=== PATIENT | female | born 1965 | race Caucasian/White ===

== ENCOUNTER 2023-11-04 12:49 | Outpatient (OUT) | payer BC, SELFPAY ==
--- NOTE | 2023-11-04 12:58 | MM_ITS ---
Patient Name: INNA SANTIAGO MR#: [id number] : 1965 Exam Date: 11/04/2023 Ordering Doctor: DR Nevaeh Chappell M.D. RADIOLOGY REPORT PROCEDURE: MM TOMOSYNTHESIS SCREENING BI COMPARISON: None. INDICATIONS: Screening for malignant neoplasm Calculator Name NCI Breast Cancer Risk Assessment Tool 5 Year Breast Cancer Risk Not Reported. Lifetime Breast Cancer Risk Not Reported. Personal Breast Cancer No Personal Ovarian Cancer No Treatments None Family Cancers None LOCATION: [facility] BREAST COMPOSITION: The breasts are heterogeneously dense,which may obscure small masses. FINDINGS: DIAGNOSTIC CATEGORY 2--BENIGN FINDING: RIGHT BREAST: No significant suspicious finding. Scattered benign-appearing calcifications are present. LEFT BREAST: No significant suspicious finding. Scattered benign-appearing calcifications are present. RECOMMENDATIONS: ROUTINE MAMMOGRAM AND CLINICAL EVALUATION IN 12 MONTHS. PLEASE NOTE: A NORMAL MAMMOGRAM DOES NOT EXCLUDE THE POSSIBILITY OF BREAST CANCER. A CLINICALLY SUSPICIOUS PALPABLE LUMP SHOULD BE BIOPSIED. Dictated by: Herbert Rogers M.D. on 11/04/2023 at 16:07 Approved by: Herbert Rogers M.D. on 11/04/2023 at 16:09
== END 2023-11-04 12:50 | disposition home or self-care (01) ==
LOC: MAMMO 12:52
PROVIDERS: PCP Family Medicine; Visit Provider Family Medicine
DX: Z12.31 Encounter for screening mammogram for malignant neoplasm of breast (principal)
CPT/HCPCS: 77063; 77067

== ENCOUNTER 2023-11-22 13:08 | Emergency (ER) | payer BC, SELFPAY ==
[2023-11-22] VITALS (8 sets, daily range): BP systolic 177–200; BP diastolic 88–93; PULSE 84–93; TEMP 36.9; O2SAT 98–99; BMI 26.5
--- NOTE | 2023-11-22 13:54 | XR_ITS ---
The [address] [address] Patient Name: INNA SANTIAGO MRN: [facility]:[id number] date: 1965 Sex: F Assigned Patient Location: ED.MAIN Current Patient Location: ER Accession/Order Number: [id number] Exam Date: 11/22/2023 14:30 Report Date: 11/22/2023 14:59 At the request of: ASHWINI BROWN Procedure: XR chest 1V EXAMINATION: XR chest 1V HISTORY: HTN COMPARISON: No relevant comparison available. TECHNIQUE: AP portable FINDINGS: LUNGS: No significant pulmonary parenchymal abnormalities. VASCULATURE: No increased pulmonary vasculature. PLEURA: No pneumothorax, effusion, or pleural thickening. CARDIAC: No cardiomegaly or cardiac silhouette abnormality. MEDIASTINUM: No visible mass or adenopathy. BONES: Mild degenerative disc disease and spondylosis without visible acute abnormalities. OTHER: Negative. XR/XR chest 1V IMPRESSION: No acute cardiopulmonary process Electronically authenticated by: CHUCHO AQUINO Date: 11/22/2023 14:59
--- NOTE | 2023-11-22 13:54 | CT_ITS ---
The [place] [id number] Patient Name: INNA SANTIAGO MRN: [facility]:[id number] date: 1965 Sex: F Assigned Patient Location: ED.MAIN Current Patient Location: Accession/Order Number: [id number] Exam Date: 11/22/2023 14:30 Report Date: 11/22/2023 15:00 At the request of: ASHWINI BROWN Procedure: CT head/brain wo con Study: CT head/brain wo con HISTORY: Dizziness, HTN.0 Technique: CT images of the head were acquired without intravenous contrast. Dose reduction technique used: Automatic exposure control and/or adjustment of the mA and/or kV according to patient size and/or use of degenerative reconstruction technique. Comparisons: None. Findings: BRAIN PARENCHYMA: No acute hemorrhage. No mass effect or herniation. No territorial loss of whyte-white matter differentiation. Scattered deep white matter hypodensities are nonspecific, favored to represent chronic small vessel ischemic change. The sellar contents appear normal. VENTRICLE/EXTRA-AXIAL SPACES: No hydrocephalus or extra-axial fluid collections. EXTRACRANIAL STRUCTURES: No destructive osseous lesion. Normal soft tissues. Mastoids are clear. ORBITS: Normal. PARANASAL SINUSES: Scattered ethmoid air cell mucosal thickening is nonobstructive. CT/CT head/brain wo con IMPRESSION: 1. No acute intracranial hemorrhage. 2. Patchy deep white matter hypodensities are nonspecific. Findings may represent chronic small vessel ischemic change. Consider further evaluation with MRI as clinical suspicion warrants. Of note, CT is relatively insensitive for acute infarct. Electronically authenticated by: LEO MONTANA Date: 11/22/2023 15:00
--- NOTE | 2023-11-22 13:59 | ED_ITS ---
HPI - Dizziness General Chief Complaint: Dizziness Stated Complaint: DIZZINESS/ HIGH BLODD PRESSURE Time Seen by Provider: 11/22/23 13:49 Source: patient Mode of arrival: walk-in Limitations: no limitations History of Present Illness HPI Narrative: 58 year old female presents to the ED for dizziness, nausea, HTN. Sx have been intermittent for the past 1-2 days. Reports a spinning sensation with movements. Reports increased thirst today. Denies fever, chills, SHELLEY, vision changes. Denies CP, SOB, cough, congestion. Denies emesis, diarrhea, urinary sx, abd pain. She has not taken her BP or DM medication for at least several days. She last checked her BS 2-3 weeks ago; it was around 140. Denies pain currently. Reports feeling anxious at this time. Related Data Previous Rx's ?Medication ?Instructions ?Recorded meclizine 12.5 mg tablet 12.5 mg PO BID PRN dizziness #10 11/22/23 tabs Allergies Allergy/AdvReac Type Severity Reaction Status Date / Time Penicillins Allergy Unconscious Verified 11/22/23 13:49 Review of Systems ROS Eyes Denies: change in vision Ears, nose, mouth, and throat Reports: dry mouth and vertigo; Denies: throat pain, neck pain, throat swelling, ear pain, ear discharge, nasal discharge or nasal congestion Cardiovascular Denies: chest pain, palpitations or edema Respiratory Denies: shortness of breath or cough Gastrointestinal Reports: nausea; Denies: abdominal pain, vomiting or diarrhea Genitourinary Denies: painful urination, urinary frequency or urinary urgency Musculoskeletal Denies: back pain or neck pain Integumentary/Breast Denies: rash Neurological Reports: dizziness and vertigo; Denies: headache, numbness in extremities or weakness in extremities Endocrine Reports: excessive thirst; Denies: fatigue [facility] Medical History (Updated 11/22/23 @ 15:30 by Trish Man) Diabetes ?E11.9 - Type 2 diabetes mellitus without complications (ICD-10) Hypertension ?I10 - Essential (primary) hypertension (ICD-10) Social History Little interest or pleasure in doing things: not at all Feeling down, depressed, or hopeless: not at all Exam Constitutional Vital Signs, click to edit/add: Last Vital Signs Temp 98.4 F 11/22/23 13:41 Pulse 93 H 11/22/23 15:19 Resp 20 11/22/23 15:19 BP 179/90 H 11/22/23 15:19 Pulse Ox 98 11/22/23 15:19 O2 Del Method Room Air 11/22/23 15:00 HENMT Common normals: normocephalic Face and sinus: normal facial exam Mouth: oral and palatal mucosa normal, lip normal and tongue normal Throat: posterior oropharynx normal Eye Common normals: PERRL, EOMs intact bilaterally, conjunctivae normal and no scleral icterus Neck & C-Spine Common normals: full ROM, no lymphadenopathy and supple Chest Chest: symmetrical chest wall rise Respiratory Common normals: normal respiratory effort Effort & inspection: symmetric chest movement Cardio Common normals: regular rate and regular rhythm Neuro Common normals: oriented x3, CN's II-XII intact bilaterally and moves all extremities Sensorium/orientation: awake and alert Speech: speech normal Gait (neuro): normal gait Course Vital Signs Vital signs: Vital Signs Temperature 98.4 F 11/22/23 13:41 Pulse Rate 85 11/22/23 13:41 Respiratory Rate 16 11/22/23 13:41 Blood Pressure 200/90 H 11/22/23 13:41 Pulse Oximetry 99 11/22/23 13:41 Oxygen Delivery Method Room Air 11/22/23 13:41 Temperature 98.4 F 11/22/23 13:41 Pulse Rate 93 H 11/22/23 15:19 Respiratory Rate 20 11/22/23 15:19 Blood Pressure 179/90 H 11/22/23 15:19 Pulse Oximetry 98 11/22/23 15:19 Oxygen Delivery Method Room Air 11/22/23 15:00 MDM - Dizziness MDM Narrative Medical decision making narrative: CBC and BMP were unremarkable. CT head and chest x-ray were negative for acute findings. Findings were discussed. A prescription was provided for Antivert. She was encouraged to take her home medications as directed. Follow up with pcp for a recheck, further evaluation and treatment. Return precautions were discussed. Medical Records Attestation: I reviewed the patient's medical records. Lab Data Attestation: I reviewed the patient's lab results. Labs: Lab Results 11/22/23 Range/Units 13:56 WBC 6.6 (4.0-11.0) 10^3/uL RBC 4.91 (4.20-5.40) 10^6/uL Hgb 14.0 (12.0-16.0) g/dL Hct 40.4 (36.0-48.0) % MCV 82.3 (81.0-99.0) fL MCH 28.5 (26.7-34.0) pg MCHC 34.7 (29.9-35.2) g/dL RDW 11.9 (11.0-15.0) % Plt Count 313 (150-450) 10^3/uL MPV 8.7 L (9.5-13.5) fL Neut % (Auto) 61.4 (43.0-75.0) % Lymph % (Auto) 32.6 (20.5-60.0) % Milam % (Auto) 4.1 (1.7-12.0) % Eos % (Auto) 1.1 (0.9-7.0) % Baso % (Auto) 0.5 (0.2-2.0) % Neut # (Auto) 4.0 (1.4-6.5) 10^3/uL Lymph # (Auto) 2.1 (1.2-3.8) 10^3/uL Milam # (Auto) 0.3 (0.3-0.8) 10^3/uL Eos # (Auto) 0.1 (0.0-0.7) 10^3/uL Baso # (Auto) 0.0 (0.0-0.1) 10^3/uL Abs Immat Gran (auto) 0.02 (0.00-0.03) 10^3/uL Imm/Tot Granulo (auto) 0.3 (0.0-0.5) % Sodium 133 L (136-145) mmol/L Potassium 3.4 L (3.5-5.1) mmol/L Chloride 97 L (98-107) mmol/L Carbon Dioxide 25.7 (21.0-32.0) mmol/L Anion Gap 13.7 BUN 13.0 (7.0-18.0) mg/dL Creatinine 0.85 (0.55-1.02) mg/dL Est GFR ( Amer) >60 (>=60) Est GFR (Non-Af Amer) >60 (>=60) BUN/Creatinine Ratio 15.3 Glucose 276 H (74-106) mg/dL Calcium 9.5 (8.5-10.1) mg/dL Imaging Data CT scan - head: Attestation: I have reviewed the pertinent imaging results. Radiologist's impression: ITS Impressions Chest X-Ray 11/22/23 13:54 IMPRESSION: No acute cardiopulmonary process Electronically authenticated by: CHUCHO AQUINO Date: 11/22/2023 14:[address] 11/22/23 13:54 IMPRESSION: 1. No acute intracranial hemorrhage. 2. Patchy deep white matter hypodensities are nonspecific. Findings may represent chronic small vessel ischemic change. Consider further evaluation with MRI as clinical suspicion warrants. Of note, CT is relatively insensitive for acute infarct. Electronically authenticated by: LEO MONTANA Date: 11/22/2023 15:00 ECG Data Attestation: ?I have reviewed the pertinent ECG results. (EKG was reviewed by the attending physician. It showed sinus rhythm at a rate of 84. No acute ST segment changes.) Interpretation: Measurements Intervals Rickman Rate: 84 P: 73 NH: 142 QRS: 46 QRSD: 78 T: 46 QT: 370 QTc: 411 Interpretive Statements 1100 Sinus rhythm 3433 Septal myocardial infarction, probably old 9150 abnormal ECG No previous ECG available for comparison Discharge Plan Discharge Chief Complaint: Dizziness Clinical Impression: Dizziness, Hypertension Patient Disposition: Home, Self-Care Time of Disposition Decision: 15:29 Condition: Good Mode of Transportation: Private Vehicle Prescriptions / Home Meds: New meclizine 12.5 mg tablet 12.5 mg PO BID PRN (Reason: dizziness) Qty: 10 0RF Print Language: Sami Instructions: Vertigo (ED), Hypertension (ED), Dizziness (ED), Diabetic Hyperglycemia (ED) Additional Instructions: Return to the ER for new or worsening symptoms. Referrals: Nevaeh Chappell MD [Primary Care Provider] - 1 week Discharge Date/Time: 11/22/23 15:54
[2023-11-22] MEDS: ONDANSETRON PF 4 MG/2 ML VIAL IV (14:02)
--- OUTSIDE RECORDS SUMMARY | 2023-11-22 14:08 | XMS_ITS | CCD ---
Author Organization [facility] Care Team Providers Care Home Day Care Provider Name Role Phone DR NEVAEH CHAPPELL Admitting Unavailable MANDO, DR NEVAEH Martinez Primary Care Unavailable CHAPPELL, DR NEVAEH Martinez Consulting Unavailable MANDO, DR NEVAEH Martinez Attending Unavailable MANDO, DR NEVAEH Martinez Primary Care Unavailable NHAN OVERTON Admitting Unavailable NHAN OVERTON Consulting Unavailable NHAN OVERTON Attending Unavailable MANDO, DR NEVAEH Martinez Primary Care Unavailable WEST, DR CHUCHO Monsalve Consulting Unavailable CHAPPELL, DR NEVAEH Martinez Attending Unavailable CHAPPELL, DR NEVAEH Martinez Admitting Unavailable CHAPPELL, DR NEVAEH Martinez Consulting Unavailable CHAPPELL, DR NEVAEH Martinez Admitting Unavailable CHAPPELL, DR NEVAEH Martinez Primary Care Unavailable CHAPPELL, DR NEVAEH Martinez Consulting Unavailable CHAPPELL, DR NEVAEH Martinez Attending Unavailable Nevaeh Chappell Unavailable Matthias Matta Unavailable MD Nevaeh Chappell Attending Provider Nevaeh Chappell Attending Unavailable Nevaeh Chappell Admitting Unavailable NON STAFF Primary Care Unavailable Allergies Allergy Classification Reported Allergen(s) Allergy Type Date of Onset Reaction(s) Facility (1 source) Penicillins Drug allergy (disorder) 03-21-19 15 The Repository (4 sources) Angiotensin-convert ing enzyme inhibitor agent Drug allergy 05-02-19 16 Unknown [facility] Other (5 sources) Penicillin G Benzathine; Translations: [penicillin G benzathine] Drug allergy 11-01-19 24 passed out [facility] Repository (4 sources) Penicillin V Drug Allergy 05-02-19 16 Unknown [employer] Other (4 sources) Allergies Reconciled Propensity to adverse reactions Unknown [employer] Other (4 sources) Substance with penicillin structure and antibacterial mechanism of action (substance) Drug allergy 05-03-19 18 Unknown [employer] Other (4 sources) patient allergy list reviewed by nurse or physicia Propensity to adverse reactions 08-16-19 19 Comment:Done [employer] Other (4 sources) DEAN inhibitor use, contraindication Propensity to adverse reactions 05-02-19 16 Comment:advers e rxn/side effects [employer] Other Medications Current Medications Medication Drug Class(es) Dates Sig (Normalized) Sig (Original) 0.25 MG, 0.5 MG Dose 3 ML semaglutide 0.68 MG/ML Pen Injector [Ozempic] (4 sources) Start: 07-30-2022 inject 0.5 mg by subcutaneous injection every week Ozempic (0.25 or 0.5 MG/DOSE) 2 MG/3ML 0.5mg Subcutaneous weekly for 90 days July, Active aspirin 81 mg chewable tablet (6 sources) Platelet Aggregation Inhibitor, Nonsteroidal Anti-inflammatory Drug Start: 10-26-2023 take 81 mg by mouth once daily Aspirin Active 81 MG PO Daily October 26, 2023 12:00am Baby Aspirin Act crow azithromycin 250 mg oral tablet (4 sources) Macrolide Antimicrobial Start: 07-30-2022 Azithromycin 250 MG as directed Orally 2 tabs po today, then 1 tab daily x 4 more days for 5 July, Active losartan potassium 50 mg oral tablet (2 sources) Angiotensin 2 Receptor Guillermo Start: 10-26-2023 take 50 mg by mouth once daily Losartan Active 50 MG PO Daily October 26, 2023 12:00am Losartan Potassium-HCTZ (4 sources) Losartan Potassium-HCTZ Active metFORMIN hydrochloride 500 mg oral tablet (3 sources) Biguanide Start: 09-10-2023 take 1500 mg by mouth once daily Metformin Active 1500 MG PO Daily September 10, 2023 12:00am take 3 tablets by [facility] every twenty-four hours metFORMIN HCl ER 500 MG 3 tablets Orally daily for 30 days Active Ozempic (0.25 or 0.5 MG/DOSE) 2 MG/1.5ML (1 source) Ozempic (0.25 or 0.5 MG/DOSE) 2 MG/1.5ML INJECT 0.5MG MILLIGRAM UNDER SKIN ONCE A WEEK for 84 Active Semaglutide (2 sources) Start: 10-26-2023 inject 0.5 mg by subcutaneous injection every week Semaglutide (Ozempic) 0.25 mg or 0.5 mg (2 mg/3 mL) pen injector Active MG SUBCUT October 26, 2023 12:00am [employer]Text[employer].5mg Subcutaneous weekly; Note: Source Status: Taking; Refills: 2; Provider: Mando Martinez Completed/Discontinued Medications Medication Drug Class(es) Dates Sig (Normalized) Sig (Original) 0.25 mg, 0.5 mg dose 1.5 ml semaglutide 1.34 mg/ml pen injector (5 sources) Start: 10-26-2023 End: 11-01-2023 Semaglutide (Ozempic) 0.25 mg or 0.5 mg(2 mg/1.5 mL) pen injector Discontinued MG SUBCUT October 26, 2023 12:00am November 01, 2023 1:17pm FreeTextSig: INJECT 0.5MG MILLIGRAM UNDER SKIN ONCE A WEEK; Note: Source Status: Taking; Refills: 1; Qty: 4.5; Provider: Mando Herring ( ) Ozempic (0.25 or 0.5 MG/DOSE) 2 MG/1.5ML INJECT 0.5MG MILLIGRAM UNDER SKIN ONCE A WEEK for 84 Active sulfamethoxazole 800 mg / trimethoprim 160 mg oral tablet (8 sources) Dihydrofolate Reductase Inhibitor Antibacterial, Sulfonamide Antimicrobial Start: 08-23-2023 End: 11-01-2023 take 1 tablet by mouth twice daily Sulfamethoxazole-Trimethoprim Discontinued 1 TAB PO Twice daily August 23, 2023 12:00am November 01, 2023 1:18pm Start: 10-13-2022 take 1 tablet by augusta th every twelve hours Bactrim DS 800-160 MG 1 tablet Orally Twice a day for 10 day(s) Oct, Active Problems Active Problems Problem Classification Problem Date Documented Date Episodic/Chronic Anxiety disorders (4 sources) Anxiety disorder; Translations: [Anxiety disorder, unspecified] Chronic Cardiac dysrhythmias (4 sources) Palpitations; Translations: [PALPITATIONS] Onset: 05-07-2021 Episodic Diabetes mellitus with complications (16 sources) Type 2 diabetes mellitus with hyperglycemia; Translations: [Type II diabetes mellitus uncontrolled] Onset: 11-06-2020 Chronic Diabetes mellitus without complication (4 sources) Type 2 diabetes mellitus without complication; Translations: [Diabetes mellitus without mention of complication, type II or unspecified type, not stated as uncontrolled] Onset: 05-02-2015 Chronic Diabetes mellitus without complication (4 sources) Ketonuria; Translations: [Acetonuria] Episodic Disorders of lipid metabolism (4 sources) Hyperlipidemia; Translations: [Hyperlipidemia, unspecified] Chronic Essential hypertension (9 sources) Essential (primary) hypertension; Translations: [Essential hypertension] Onset: 05-02-2015 Chronic Genitourinary symptoms and ill-defined conditions (9 sources) Dysuria; Translations: [Dysuria] Episodic Menopausal disorders (4 sources) Postmenopausal bleeding; Translations: [Postmenopausal bleeding] Chronic Mycoses (4 sources) Candidal vulvovaginitis; Translations: [Candidiasis of vulva and vagina] Episodic Nonspecific chest pain (8 sources) Precordial pain; Translations: [Precordial pain] Onset: 04-03-2021 Episodic Other lower respiratory disease (1 source) Dyspnea, unspecified; Translations: [DYSPNEA UNSPECIFIED] Onset: 04-05-2021 Episodic Other nutritional; endocrine; and metabolic disorders (4 sources) Overweight; Translations: [Overweight] Episodic Other screening for suspected conditions (not mental disorders or infectious disease) (14 sources) Electrocardiogram abnormal; Translations: [Abnormal electrocardiogram [ECG] [EKG]] 11-01-2023 Episodic Past or Other Problems Problem Classification Problem Date Documented Da te Episodic/Chronic Other connective tissue disease (4 sources) Pain in limb; Translations: [Pain in right lower leg] Onset: 02-17-2018 Episodic Skin and subcutaneous tissue infections (4 sources) Cellulitis and abscess of trunk; Translations: [Cutaneous abscess of abdominal wall] Onset: 08-12-2018 Episodic Spondylosis; intervertebral disc disorders; other back problems (4 sources) Thoracic and lumbosacral neuritis; Translations: [Thoracic or lumbosacral neuritis or radiculitis, unspecified] Onset: 02-17-2018 Episodic Results Test Name Value Interpretation Reference Range Facility Pap IG, CtNg, rfx HPV Aptima on 11-01-2023 PAP Chlamydia IDA Negative Normal Negative [facility] Comment on above: Performed By: #### P AP #### [facility] , PAP Gonococcus Negative Normal Negative [facility] Comment on above: Result Comment: Perf ormed at: WB - [facility] [place] [address] [facility], [place] [id number] Director Of Philanthropy: Benita Sewell MD, Phone: [phone] Performed at: =G - [facility] [place] [address] [facility] [facility], [place] [id number] Director Of Philanthropy: Benita Sewell MD, Phone: [phone] PERFORMED BY: [facility] [address] [place] [address] PATHOLOGIST CLINICAL NURSING PROFESSOR ERASMO MCKEON M.D. Performed By: #### P AP #### [facility] , Pap IG Note Normal . [facility] Comment on above: Result Comment: TEST S RESULT FLAG UNITS REF RANGE LAB Clinician Provided Cytology Information No. of containers..01 ThinPrep Vial DIAGNOSIS: 01 NEGATIVE FOR INTRAEPITHELIAL LESION OR MALIGNANCY. Specimen adequacy: 01 Satisfactory for evaluation. Endocervical and/or squamous metaplastic cells (endocervical component) are present. Performed by: Yolis Batista, Lead Java Developer Architect (ASCP) . 01 Note: Note 01 The Pap smear is a screening test designed to aid in the detection of premalignant and malignant conditions of the uterine cervix. It is not a diagnostic procedure and should not be used as the sole means of detecting cervical cancer. Both false-positive and false-negative reports do occur. Test Methodology: Note 01 This liquid based ThinPrep(R) pap test was screened with the use of an image guided system. . 01 The HPV DNA reflex criteria were not met with this specimen result therefore, no HPV testing was performed. FLAG LEGEND: L-Low Normal,H-High Normal,LL-Alert Low,HH-Alert High <-Panic Low,>-Panic High,A-Abnormal,AA-Critical Abnormal Performed at: 01 WB [facility] [address] [place] [address] Benita Sewell MD, Performed By: #### P AP [id number] #### [facility] , Laboratory - Chemistry and C hemistry - challengeon 08-23-2023 Bilirubin Ql (U) Negative [facility] Glucose (U) [Mass/Vol] Negative [facility] Ketones Ql (U) 5 [facility] pH (U) 6.5 [pH] [facility] Specific gravity (U) [Rel density] 1.000 [facility] Urobilinogen (U) [Mass/Vol] 0.2 mg/dL [facility] Laboratory - Specimen inform ationon 08-23-2023 Appearance (U) cloudy [facility] Color (U) yellow [facility] Laboratory - Urinalysison Leukocyte esterase Test strip Ql (U) ++ [facility] Nitrite Ql (U) Negative [facility] Protein Ql (U) + [facility] No Panel Informationon 08-22 Urine Occult Blood Negative [facility] 36on 06-24-2022 36 Noted on prescriptio n for patient to schedule appointment prior to running out of meds. Normal [facility] ECHOCARDIO M/2D COMPLETEon 0 05-07-2021 ECHOCARDIO M/2D COMPLETE Patient: MARISELA SANTIAGO Exam Date: 05/07/2021 : 1965 Gender:F Ordering : NHAN OVERTON Admission #: [id number] Family : Order #: [id number] CLICK HERE TO VIEW EXAM ECHOCARDIOGRAM REPORT PROCEDURE: CARDIO PULMONARY ECHOCARDIO M/2D COMP INDICATIONS: Palpitations COMPARISON: None. DESCRIPTION: COMPLETE ECHOCARDIOGRAM Real-time transthoracic echocardiography with 2D, M-mode, spectral and color flow Doppler performed. QUALITY: Technical quality was adequate. 62 147# 166/98 HR 98 Poor parasternal views; significant lung interference. LEFT VENTRICLE: Normal chamber size. Global left ventricular systolic function is normal. Calculated left ventricular ejection fraction is 64%. No regional wall motion abnormalities. LV EF: DIASTOLIC: Normal diastolic function. ATRIAL SEPTUM: LEFT ATRIUM: Normal chamber size. RIGHT ATRIUM: Normal chamber size. RIGHT VENTRICLE: Normal chamber size. Normal right ventricular systolic function. TRICUSPID VALVE: Normal mobility and thickness. No stenosis with no regurgitation. No evidence of pulmonary hypertension. Unable to calculated right sided pressures due to lack of tricuspid regurgitation. MITRAL VALVE: Normal mobility and thickness. No evidence of mitral valve stenosis. No mitral regurgitation. AORTIC VALVE: No evidence of aortic valve stenosis. Aortic valve is mildly sclerotic with good mobility. No aortic regurgitation. AORTIC ROOT: PULMONIC VALVE: Not well visualized. PERICARDIUM: No evidence of pericardial effusion. IVC: Collapses with inspirations. IVC is normal in size. PLEURA: CONCLUSION: 1. Normal ventricular function. 2. No significant valvular dysfunction. 3. No pericardial effusion. Adult Echocardiography Procedure Report Left Ventricle Left Atrium Mitral Valve Right Ventricle Aorta Aortic Valve Peak Velocity (Antegrade Flow): 1.32 m/s AoV Area (Peak Ryan): 2.66 cm2, 2.66 cm2 Peak Velocity(Antegrade Flow): 1.32 m/s Peak Gradient(Antegrade Flow): 6.96 mm[Hg] Tricuspid Valve Peak Velocity: 0.64 m/s, 0.64 m/s Pulmonic Valve Right Atrium Dictated by: Quentin Huynh M.D. on 05/07/2021 at 16:49 Approved by: Quentin Huynh M.D. on 05/07/2021 at 16:51 Normal [facility] NM STRESS/REST MULTIon 04-03 NM STRESS/REST MULTI Patient: MARISELA SANTIAGO Exam Date: 04/03/2021 : 1965 Gender:F Ordering : DR NEVAEH CHAPPELL M.D. Admission #: [id number] Family : Order #: [id number] CLICK HERE TO VIEW EXAM RADIOLOGY REPORT PROCEDURE: RADIONUCLIDE IMAGING STRESS/REST MULTI COMPARISON: None. INDICATIONS: Dyspnea TECHNIQUE: Exam Description: Stress/Rest one day protocol gated SPECT Rest Imagin.7 mCi Tc-99m Cardiolite IV on 04/03/2021 Stress Imaging 29.9 mCi Tc-99m Cardiolite IV on 04/03/2021 Exercise Protocol: Esteban Heart Rate (bpm): Rest: 101 Max: 148 PMHR: 90 Blood Pressure: Rest: 162/94 Max: 174/90 Exercise Time: Minutes: 2 Seconds: 56 Stage Reached: Stage: 1 Mets 4.6 Symptoms: Rest and peak stress ECG findings were abnormal and the exercise portion of the study was abnormal per attending physician Dr. Alvaro Matta . For more details please see separate cardiac stress test report. FINDINGS: QUALITY OF STUDY: Excellent. PERFUSION DEFECT: None. LOCATION: N/A SIZE: N/A. SEVERITY: N/A. TYPE: N/A. WALL MOTION: Normal. LV SIZE: Normal. 38 mL. TID / TCD: None; 0.9 LVEF: Normal. Calculated EF 72%. SUMMARY: Myocardial perfusion imaging study is NORMAL. CONCLUSION: 1. Normal myocardial perfusion scan. No reversible ischemia 2. Abnormal exercise test Dictated by: Chucho Sue MD on 04/03/2021 at 14:36 Approved by: Chucho Sue MD on 04/03/2021 at 14:37 Normal The CBC AUTO DIFFon 11-06-2020 BASO # 0.1 103/ul Normal 0.0-0.1 [facility] Comment on above: Performed By: #### C BC #### Laboratory [address] [place] [address] Raymond Letty Basophils/100 WBC (Bld) 0.9 % Normal 0.2-2.0 The Comment on above: Performed By: #### C BC #### Laboratory [address] [place] [address] Raymond Letty EO # 0.3 103/ul Normal 0.0-0.7 [facility] Comment on above: Performed By: #### C BC #### Laboratory [address] [place], [place] [id number] Raymond Letty Eosinophils/100 WBC (Bld) 5.3 % Normal 0.9-7.0 The Comment on above: Performed By: #### C BC #### Laboratory [address] [place], [place] [phone] Raymond Letty Erythrocyte distribution width (RBC) [Ratio] 12.2 % Normal 11.0-15.0 The Comment on above: Performed By: #### C BC #### Laboratory [address] [place] [address] Raymond Letty Hematocrit (Bld) [Volume fraction] 43.3 % Normal 36.0-48.0 The Comment on above: Performed By: #### C BC #### Laboratory [address] [place] [address] Raymond Letty Hemoglobin (Bld) [Mass/Vol] 14.6 g/dL Normal 12.0-16.0 The Comment on above: Performed By: #### C BC #### Laboratory [address] [place] [address] Ramyond Letty IG # 0.01 10e3/ul Normal 0.00-0.03 The Comment on above: Performed By: #### C BC #### Laboratory [address] [place] [address] Raymond Letty IG % 0.2 % Normal 0.0-0.5 The Comment on above: Performed By: #### C BC #### Laboratory [address] [place] [address] Raymond Letty LYMPH # 2.0 103/ul Normal 1.2-3.8 The Comment on above: Performed By: #### C BC #### Laboratory [address] [place] [address] Raymond Letty Lymphocytes/100 WBC (Bld) 34.9 % Normal 20.5-60.0 The Comment on above: Performed By: #### C BC #### Laboratory [address] [place] [address] Raymond Saenz MANUAL DIFF REQ NO Normal [facility] Comment on above: Performed By: #### C BC #### Laboratory [address] [place] [address] Raymond Saenz MCH (RBC) [Entitic mass] 28.3 pg Normal 26.7-34.0 [facility] Comment on above: Performed By: #### C BC #### Laboratory [address] [place] [address] Raymond Saenz MCHC (RBC) [Mass/Vol] 33.7 g/dL Normal 29.9-35.2 [facility] Comment on above: Performed By: #### C BC #### Laboratory [address] [place] [address] Raymond Saenz MCV (RBC) [Entitic vol] 84.1 fL Normal 81.0-99.0 [facility] Comment on above: Performed By: #### C BC #### Laboratory [address] [place] [address] Raymond Saenz MONO # 0.5 103/ul Normal 0.3-0.8 [facility] Comment on above: Performed By: #### C BC #### Laboratory [address] [place] [address] Raymond Saenz Monocytes/100 WBC (Bld) 7.9 % Normal 1.7-12.0 [facility] Comment on above: Performed By: #### C BC #### Laboratory [address] [place] [address] Raymond Saenz NEUT # 2.9 103/ul Normal 1.4-6.5 The Comment on above: Performed By: #### C BC #### Laboratory [address] [place] [address] Raymond Saenz Neutrophils/100 WBC (Bld) 50.8 % Normal 43.0-75.0 [facility] Comment on above: Performed By: #### C BC #### Laboratory [address] [place] [address] Raymondmari Saenz Platelet mean volume (Bld) [Entitic vol] 9.2 fL Critically low 9.5-13.5 [facility] Comment on above: Performed By: #### C BC #### Laboratory [address] [place], [place] [phone] Raymond Saenz PLT 259 103/ul Normal 150-450 [facility] Comment on above: Performed By: #### C BC #### Laboratory [address] [id number] Raymond Saenz RBC 5.15 106/ul Normal 4.20-5.40 [facility] Comment on above: Performed By: #### C BC #### Laboratory [address] [place], [place] [phone] Raymondmari Saenz WBC 5.7 103/ul Normal 4.0-11.0 [facility] Comment on above: Performed By: #### C BC #### Laboratory [address] [place] [address] Raymond Saenz GLYCOHEMOGLOBIN A1Con 2020 ADA RECOMMENDATION ADA THERAPEUTIC TARGET 6.0 - 7.0 ACTION SUGGESTED > 7.0 Normal [facility] Comment on above: Performed By: #### A 1C #### Laboratory [address] [place], [place] [phone] Raymond Saenz Glucose [Mass/Vol] 280 mg/dL Normal [facility] Comment on above: Performed By: #### A 1C #### Laboratory [address] [place], [place] [phone] Raymond Saenz HbA1c (Bld) [Mass fraction] 11.4 % Critically high <=6.0 [facility] Comment on above: Performed By: #### A 1C #### Laboratory [address] [place], [place] [phone] Raymond Saenz LIPID PROFILEon 11-06-2020 CHOL-HDL RATIO NORM SEE BELOW Normal [facility] Comment on above: Result Comment: 3.3 - 4.4 LOW RISK 4.4 - 7.1 AVERAGE RISK 7.1 - 11.0 MODERATE RISK >11.0 HIGH RISK Performed By: #### C MP, LIPID #### Laboratory [address] [place], [place] [address] Raymond Letty Cholesterol [Mass/Vol] 282 mg/dL Critically high <=200 The Comment on above: Performed By: #### C MP, LIPID #### Laboratory [address] [id number] Raymond Letty Cholesterol in HDL [Mass/Vol] 41 mg/dL Normal [facility] Comment on above: Performed By: #### C MP, LIPID #### Laboratory [address] [phone] Raymond Letty Cholesterol in LDL [Mass/Vol] 167.8 mg/dL Normal The Comment on above: Performed By: #### C MP, LIPID #### Laboratory [address] [phone] Raymond Letty Cholesterol.total/Ch olesterol in HDL [Mass ratio] 6.9 {ratio} Normal [facility] Comment on above: Performed By: #### C MP, LIPID #### Laboratory [address] [id number] Raymond Letty HDL NORMAL > or = 60 mg/dl - LO W CARDIOVASCULAR RISK <40 mg/dl - HIGH CARDIOVASCULAR RISK Normal The Comment on above: Performed By: #### C MP, LIPID #### Laboratory [address] [place], [place] [phone] Ryamond Letty LDL CALC NORMAL SEE BELOW Normal [facility] Comment on above: Result Comment: <100 mg/dl OPTIMAL 100 - 129 mg/dl NEAR OR ABOVE OPTIMAL 130 - 159 mg/dl BORDERLINE HIGH 160 - 189 mg/dl HIGH >190 mg/dl VERY HIGH Performed By: #### C MP, LIPID #### Laboratory [address] [id number] Raymond Letty Triglyceride [Mass/Vol] 366 mg/dL Critically high <=150 The Comment on above: Performed By: #### C MP, LIPID #### Laboratory [address] [address] Raymond Letty VLDL CALC 73.2 mg/dL Normal The Comment on above: Performed By: #### C MP, LIPID #### Laboratory [address] [place], [place] [address] Raymond Letty PROF 14(COMP METB)on 021 Albumin [Mass/Vol] 3.8 g/dL Normal 3.5-5.0 [facility] Comment on above: Performed By: #### C MP, LIPID #### Laboratory [address] [place] [address] Raymond Letty Albumin/Globulin [Mass ratio] 0.9 {ratio} Normal [facility] Comment on above: Performed By: #### C MP, LIPID #### Laboratory [address] [place], [place] [address] Raymond Letty ALP [Catalytic activity/Vol] 168 U/L Critically high 38-126 [facility] Comment on above: Performed By: #### C MP, LIPID #### Laboratory [address] [place], [place] [address] Raymond Letty ALT [Catalytic activity/Vol] 42 U/L Normal 9-52 [facility] Comment on above: Performed By: #### C MP, LIPID #### Laboratory [address] [place], [place] [address] Raymond Letty Anion gap [Moles/Vol] 12.6 mmol/L Normal [facility] Comment on above: Performed By: #### C MP, LIPID #### Laboratory [address] [place], [place] [address] Raymond Letty AST [Catalytic activity/Vol] 22 U/L Normal 14-36 The Comment on above: Performed By: #### C MP, LIPID #### Laboratory [address] [place], [place] [address] Raymond Letty Bilirubin [Mass/Vol] 0.5 mg/dL Normal 0.2-1.3 The Comment on above: Performed By: #### C MP, LIPID #### Laboratory [address] [place], [place] [address] Raymond Letty Calcium [Mass/Vol] 9.0 mg/dL Normal 8.4-10.2 [facility] Comment on above: Performed By: #### C MP, LIPID #### Laboratory [address] [phone] Raymond Letty Chloride [Moles/Vol] 97 mmol/L Critically low 98-107 The Comment on above: Performed By: #### C MP, LIPID #### Laboratory [address] [phone] Raymond Letty CO2 [Moles/Vol] 29.6 mmol/L Normal 22.0-30.0 The [facility] Comment on above: Performed By: #### C MP, LIPID #### Laboratory [address] [phone] Raymond Letty Creatinine [Mass/Vol] 0.83 mg/dL Normal 0.52-1.04 The Comment on above: Performed By: #### C MP, LIPID #### Laboratory [address] [place], [place] [address] Raymond Letty EGFR-AF OMANI >60 Normal >=60 [facility] Comment on above: Performed By: #### C MP, LIPID #### Laboratory [address] [place], [place] [address] Raymond Letty EGFR-NON AF OMANI >60 Normal >=60 The Comment on above: Performed By: #### C MP, LIPID #### Laboratory [address] [place], [place] [address] Raymond Letty Globulin (S) [Mass/Vol] 4.0 g/dL Normal The Comment on above: Performed By: #### C MP, LIPID #### Laboratory [address] [place], [place] [address] Raymond Letty Glucose [Mass/Vol] 279 mg/dL Critically high 74-106 [facility] Comment on above: Performed By: #### C MP, LIPID #### Laboratory [address] [place], [place] [address] Raymond Letty Potassium [Moles/Vol] 4.2 mmol/L Normal 3.4-5.0 [facility] Comment on above: Performed By: #### C MP, LIPID #### Laboratory [address] [place], [place] [phone] Raymond Letty Protein [Mass/Vol] 7.8 g/dL Normal 6.1-8.2 [facility] Comment on above: Performed By: #### C MP, LIPID #### Laboratory [address] [phone] Raymond Letty Sodium [Moles/Vol] 135 mmol/L Critically low 137-145 [facility] Comment on above: Performed By: #### C MP, LIPID #### Laboratory [address] [address] Raymond Letty Urea nitrogen [Mass/Vol] 12.0 mg/dL Normal 7.0-17.0 [facility] Comment on above: Performed By: #### C MP, LIPID #### Laboratory [address] [id number] Raymond Letty Urea nitrogen/Creatinine [Mass ratio] 14.5 mg/mg Normal [facility] Comment on above: Performed By: #### C MP, LIPID #### Laboratory [address] [id number] Raymond Letty Vital Signs Date Time Vital Sign Value Performing Clinician Faci lity 11-01-2023 13:14-0400 Body height 157.48 cm [facility] 11-01-2023 13:14-0400 Body mass index (BMI) [Ratio] 26.2 kg/m2 [facility] 11-01-2023 13:14-0400 Body weight 64.86 kg [facility] 11-01-2023 13:14-0400 Diastolic blood pressure 88 mm[Hg] [facility] 11-01-2023 13:14-0400 Heart rate 101 /min [facility] 11-01-2023 13:14-0400 Systolic blood pressure 153 mm[Hg] [facility] 10-13-2022 11:45-0400 Body height 157.48 cm Matthias Matta Other [employer] Other Encounters Encounter Date Encounter Type Care Provider Facility Start: 11-01-2023 End: 11-01-2023 Patient encounter procedure [facility] Work Phone: Start: 11-01-2023 End: 11-01-2023 ambulatory Nevaeh Chappell [facility] Work Phone: Start: 11-01-2023 End: 11-01-2023 Departed Referred MD Nevaeh Chappell Work Phone: [facility] [place] Work Phone: Start: 11-01-2023 Encounter for gynecological examination (general) (routine) without abnormal findings Nevaeh Chappell [facility] Start: 08-23-2023 End: 08-23-2023 ambulatory [facility] Work Phone: Start: 08-23-2023 End: 08-23-2023 Patient encounter procedure [facility] Work Phone: Start: 12-03-2022 End: 12-03-2022 ambulatory Nevaeh Chappell Other [employer] Other Start: 12-03-2022 Telephone encounter Nevaeh Chappell [facility] Start: 11-02-2022 End: 11-02-2022 ambulatory Nevaeh Chappell Other [employer] Other Start: 11-02-2022 Nursing evaluation o f patient and report Nevaeh Chappell [facility] Start: 10-13-2022 End: 10-13-2022 ambulatory Nevaeh Chappell Other [employer] Other Start: 10-13-2022 Nursing evaluation o f patient and report Matthias Matta [facility] Start: 10-13-2022 Telephone encounter Nevaeh Chappell [facility] Start: 05-07-2021 End: 05-08-[address] NEVAEH CHAPPELL Facility:[facility] Start: 04-03-2021 End: 04-04-[address] NEVAEH CHAPPELL Facility:[facility] Start: 03-15-2021 Gynecological examin ation normal Nevaeh Chappell Other [employer] Other Start: 03-13-2021 End: 03-14-[address] NEVAEH CHAPPELL Facility:[facility] Start: 11-06-2020 End: 11-07-[address] NEVAEH CHAPPELL Facility:[facility] Start: 08-06-2020 Problem, abnormal examination Nevaeh Chappell Other [employer] Other Procedures Date Procedure Procedure Detail Performing Clinician Start: 05-02-2015 Screening mammography Jung Chapplel Other Screening for malign ant neoplasm of breast Nevaeh Chappell Other Plan of Treatment Date Care Activity Detail Author Start: 11-01-2023 Patient referral [facility] Work Phone: Start: 11-01-2023 [facility] Chlamydia trachomati s rRNA [Presence] in Cervix by IDA with probe detection [facility] Human papilloma viru s 16+18+31+33+35+39+45+51+52+56+58 +59+66+68 DNA [Presence] in Cervix by Probe with signal amplification [facility] Human papilloma viru s 16+18+31+33+35+39+45+51+52+56+58 +59+68 DNA [Presence] in Cervix by Probe with signal amplification [facility] MG Breast - bilateral Screening [facility] Neisseria gonorrhoea e rRNA [Presence] in Cervix by IDA with probe detection [facility] Patient referral [facility] Work Phone: Payers Date Payer Category Payer [employer] [id number] 2023 Self-pay [id number] 1965 Unknown [id number] [id number] [id number] 1965 Unknown [id number] 2.16.84 [id number] 1965 Unknown [id number] 2.16.84 [id number] 1965 Unknown [id number] 2.16.84 [id number] 1960 Unknown [id number] Unknown [facility] [id number] Unknown [id number] [id number] Social History Date Type Detail Facility Unknown if ever smoked [employer] Other Sex Assigned At Sex Assigned At [facility] [employer] Other Start: 10-19-2016 Tobacco smoking status NHIS Never smoked tobacco (finding) [facility] Start: 1965 Sex Assigned At Female F [facility] Hospital Discharge instructions 11-01-2023 Note Date & Type Note Facility 11-01-2023 Hospital Discharge instructions Ambulatory OrdersReferral to Gastroenterology Time Frame: 11/01/23, Location: None [facility] Work Phone: Evaluation note 11-02-2022 Note Date & Type Note Facility 11-02-2022 Evaluation note Encounter Date Diagnosis Assessment Notes Oct, Dysuria (ICD-10 - R30.0) [employer] Other Evaluation note 10-13-2022 Note Date & Type Note Facility 10-13-2022 Evaluation note Encounter Date Diagnosis Assessment Notes Oct, Dysuria (ICD-10 - R30.0) [employer] Other Evaluation note Note Date & Type Note Facility Evaluation note No Information [facility] [employer] Other Evaluation note Note Date & Type Note Facility Evaluation note No assessment information availa ble [facility] Work Phone: Evaluation note Note Date & Type Note Facility Evaluation note Diagnosis Onset Date Screening mammogram for breast cancer acute [facility] Work Phone: Evaluation note Note Date & Type Note Facility Evaluation note Diagnosis Onset Date Screening for colon cancer a cute Screening mammogram for breast cancer acute [facility] exam acute [facility] Work Phone: History general Narrative - Reported Note Date & Type Note Facility History general Narrative - Reported Type Medical History Diabetes Medical History Hypertension Medical History Kidney calculi Surgical History C section Surgical History lithotripsy Hospitalization History kidney stones [employer] Other Summary Purpose Family History No Family History Records Found Relationship Condition Age at Onset Recorded Date/T megan father Diabetes mellitus Unknown Hypertension Unknown Not Specified Diabetes mellitus Unknown Heart disease Unknown Relationship Condition Age at Onset Recorded Date/T megan father Diabetes mellitus Unknown Hypertension Unknown mother Diabetes mellitus Unknown Heart disease Unknown Advance Directives No Advanced Directives Records Found Advance Directive Response Recorded Date/ Time Advance Directives No May 21 11:36am Chief Complaint and Reason for Visit Chief Complaint pos UTI Chief Complaint pos UTI Pap Reason for Visit Screening mammogram for breast cancer Chief Complaint pos UTI Encounter for well woman exam Pap Reason for Visit Screening for colon cancer Screening mammogram for breast cancer Well woman exam Additional Source Comments INFORMATION SOURCE (unrecogn ized section and content) DATE CREATED AUTHOR 05/10/2021 [facility] DATE CREATED AUTHOR AUTHOR'S ORGANIZ ATION 06/24/2022 [facility] DATE CREATED AUTHOR AUTHOR'S ORGANIZ ATION 11/07/2023 [facility] REASON FOR VISIT (unrecogniz ed section and content) UrineUA-Frequency, BurningUA - Frequency, Burningrefill Care Teams (unrecognized sec tion and content) Team Status: Active Member Role Status Dates Nevaeh Chappell MD Primary Care Provider Active Team Status: Inactive Member Role Status Dates Nevaeh Chappell MD Primary Care Provide r, Attending Provider Active Start: August 23, 2023 End: August 23, 2023 Team Status: Inactive Member Role Status Dates Nevaeh Chappell MD Primary Care Provide r, Attending Provider Active Start: November 01, 2023 End: November 01, 2023 Team Status: Inactive Member Role Status Dates Nevaeh Chappell MD Attending Provider Active St art: November 01, 2023 End: November 01, 2023 Goals (unrecognized section and content) Goals may be documented in a n alternate section FOR RECORDS PERTAINING TO PATIENTS WHO ARE OR HAVE BEEN ENROLLED IN A CHEMICAL DEPENDENCY/SUBSTANCEABUSE PROGRAM, SOME INFORMATION MAY BE OMITTED. This clinical summary was aggregated from multiple sources. Caution should be exercised in using it in the provision of clinical care. This summary normalizes information from multiple sources, and as a consequence, information in this document may materially change the coding, format and clinical context of patient data. In addition, data may be omitted in some cases. CLINICAL DECISIONS SHOULD BE BASED ON THE PRIMARY CLINICAL RECORDS. [facility] [facility]. provides no warranty or guarantee of the accuracy or completeness of information in this document.
[2023-11-22 14:10] LABS: Basophils Percent Auto 0.5 % (0.2-2.0); Eosinophils Absolute Auto 0.1 10^3/uL (0.0-0.7); Eosinophils Percent Auto 1.1 % (0.9-7.0); Hematocrit 40.4 % (36.0-48.0); Immature Granulocytes Abs Auto 0.02 10^3/uL (0.00-0.03); Immature Granulocytes Pct Auto 0.3 % (0.0-0.5); Lymphocytes Absolute Auto 2.1 10^3/uL (1.2-3.8); Lymphocytes Percent Auto 32.6 % (20.5-60.0); Mean Corpuscular HGB Conc 34.7 g/dL (29.9-35.2); Mean Corpuscular Hemoglobin 28.5 pg (26.7-34.0); Mean Corpuscular Volume 82.3 fL (81.0-99.0); Mean Platelet Volume 8.7 fL (9.5-13.5); Monocytes Absolute Auto 0.3 10^3/uL (0.3-0.8); Monocytes Percent Auto 4.1 % (1.7-12.0); Neutrophils Percent Auto 61.4 % (43.0-75.0); Platelet Count 313 10^3/uL (150-450); Red Blood Count 4.91 10^6/uL (4.20-5.40); Red Cell Distribution Width 11.9 % (11.0-15.0); White Blood Count 6.6 10^3/uL (4.0-11.0)
[2023-11-22 14:20] LABS: Anion Gap 13.7; BUN Creatinine Ratio 15.3; Calcium 9.5 mg/dL (8.5-10.1); Carbon Dioxide 25.7 mmol/L (21.0-32.0); Chloride 97 mmol/L (98-107); Estimated GFR (African America >60 (>=60); Estimated GFR (Non-African Ame >60 (>=60); Glucose 276 mg/dL (74-106); Potassium 3.4 mmol/L (3.5-5.1); Sodium 133 mmol/L (136-145)
[2023-11-22] MEDS: HYDRALAZINE HCL 20 MG/ML VIAL 10 MG IVP (14:20)
[2023-11-22] MEDS: MECLIZINE HCL 12.5 MG TABLET 25 MG PO (14:20)
[2023-11-22] MEDS: 0.9 % SODIUM CHLORIDE 1,000 ML 1000 ML IV (14:20)
--- NOTE | 2023-11-22 15:19 | ECG_ITS ---
[facility] Test Date: 2023-11-22 Pat Name: INNA SANTIAGO Department: Room: - Gender: Female [employer]: : 1965 Requested By: CANDIDO GILMORE Order Number: [id number] Reading MD: JORDYN MOLINA Measurements Intervals [place] Rate: 84 P: 73 TX: 142 QRS: 46 QRSD: 78 T: 46 QT: 370 QTc: 411 Interpretive Statements 1100 Sinus rhythm 3433 Septal myocardial infarction, probably old 9150 abnormal ECG Compared to ECG 03/13/2021 10:13:26 Electronically Signed On 11-22-2023 22:50:16 EDT by JORDYN MOLINA
[2023-11-22] MEDS: HYDROXYZINE HCL 10 MG TABLET PO (15:27)
== END 2023-11-22 15:54 | disposition home or self-care (01) ==
PROVIDERS: Nurse Practitioner Family; Emergency Provider Emergency Medicine; PCP Family Medicine
DX: R42 Dizziness and giddiness (principal); I10 Essential (primary) hypertension; E11.9 Type 2 diabetes mellitus without complications
CPT/HCPCS: 36415; 70450; 71045; 80048; 85025; 93005; 96361; 96374; 96375; 99285; J0360; J2405

== ENCOUNTER 2024-04-13 11:29 | Outpatient (OUT) | payer BC, SELFPAY ==
--- OUTSIDE RECORDS SUMMARY | 2024-04-13 11:34 | XMS_ITS | CCD ---
Author Organization [facility] Care Team Providers Care Director Staffing Name Role Phone DR NEVAEH CHAPPELL Admitting [...] Penicillins Drug allergy (disorder) 03-21-19 15 [facility] Repository (4 sources) Angiotensin-convert ing enzyme inhibitor agent Drug allergy 05-02-19 16 Unknown [facility] Other (5 sources) Penicillin G Benzathine; Translations: [penicillin G benzathine] Drug allergy 11-01-19 24 passed out [facility] Repository (4 sources) Penicillin V Drug Allergy 05-02-19 16 Unknown [facility] Other (4 sources) Allergies Reconciled Propensity to adverse reactions Unknown [facility] Other (4 sources) Substance with penicillin structure and antibacterial mechanism of action (substance) Drug allergy 05-03-19 18 Unknown [facility] Other (4 sources) patient allergy list reviewed by nurse or physicia Propensity to adverse reactions 08-16-19 19 Comment:Done [facility] Other (4 sources) DEAN inhibitor use, contraindication Propensity to adverse reactions 05-02-19 16 Comment:advers e rxn/side effects [facility] Other Medications Current Medications Medication Drug Class(es) [...] 10, 2023 12:00am take 3 tablets by [facility] every twenty-four hours metFORMIN HCl ER 500 [...] PAP Chlamydia IDA Negative Normal Negative [facility] Comment on above: Performed By: #### P AP #### [facility] , PAP Gonococcus Negative Normal Negative [facility] Comment on above: Result Comment: Perf ormed at: WB - [facility] [place] [address] [facility], [place] [id number] Personal Injury Specialist: Benita Sewell MD, Phone: [phone] Performed at: =G - [facility] [place] [address] [facility], [place] [id number] Personal Injury Specialist: Benita Sewell MD, Phone: [phone] PERFORMED BY: [facility] [address] [place] [address] PATHOLOGIST SALES AGENT [employer] ERASMO MCKEON M.D. Performed By: #### P AP #### [facility] , Pap IG Note Normal . [facility] Comment on above: Result Comment: TEST S RESULT FLAG UNITS REF RANGE LAB Clinician Provided Cytology Information No. of containers..01 ThinPrep Vial DIAGNOSIS: 01 NEGATIVE FOR INTRAEPITHELIAL LESION OR MALIGNANCY. Specimen adequacy: 01 Satisfactory for evaluation. Endocervical and/or squamous metaplastic cells (endocervical component) are present. Performed by: Yolis Batista, Bass Singer (ASCP) . 01 Note: Note 01 The [...] High,A-Abnormal,AA-Critical Abnormal Performed at: 01 WB [facility] [address] [place] [address] Benita Sewell MD, Performed By: #### P AP [id number] #### [facility] , Laboratory - Chemistry and C hemistry - challengeon 08-23-2023 Bilirubin Ql (U) Negative [facility] Glucose (U) [Mass/Vol] Negative [facility] Ketones Ql (U) 5 [facility] pH (U) 6.5 [pH] [facility] Specific gravity (U) [Rel density] 1.000 [facility] Urobilinogen (U) [Mass/Vol] 0.2 mg/dL [facility] Laboratory - Specimen inform ationon 08-23-2023 Appearance (U) cloudy [facility] Color (U) yellow [facility] Laboratory - Urinalysison Leukocyte esterase Test strip Ql (U) ++ [facility] Nitrite Ql (U) Negative [facility] Protein Ql (U) + [facility] No Panel Informationon 08-22 Urine Occult Blood Negative [facility] 36on 06-24-2022 36 Noted on prescriptio n for patient to schedule appointment prior to running out of meds. Normal [facility] ECHOCARDIO M/2D COMPLETEon 0 05-07-2021 ECHOCARDIO M/2D COMPLETE Patient: MARISELA SANTIAGO Exam Date: 05/07/2021 : 1965 Gender:F Ordering : NHAN OVERTON Admission #: [id number] Family : Order #: [id number] CLICK HERE TO VIEW EXAM ECHOCARDIOGRAM REPORT [...] Huynh M.D. on 05/07/2021 at 16:51 Normal [facility] NM STRESS/REST MULTIon 04-03 NM STRESS/REST MULTI Patient: MARISELA SANTIAGO Exam Date: 04/03/2021 : 1965 Gender:F Ordering : DR NEVAEH CHAPPELL M.D. Admission #: [id number] Family : Order #: [id number] CLICK HERE TO VIEW EXAM RADIOLOGY REPORT [...] MD on 04/03/2021 at 14:37 Normal [facility] CBC AUTO DIFFon 11-06-2020 BASO # 0.1 103/ul Normal 0.0-0.1 [facility] Comment on above: Performed By: #### C BC #### [facility] [address] [place] [address] Raymond Letty Basophils/100 WBC (Bld) 0.9 % Normal 0.2-2.0 [facility] Comment on above: Performed By: #### C BC #### [facility] [address] [place] [address] Raymond Letty EO # 0.3 103/ul Normal 0.0-0.7 [facility] Comment on above: Performed By: #### C BC #### [facility] [address] [place], [place] [phone] Raymond Letty Eosinophils/100 WBC (Bld) 5.3 % Normal 0.9-7.0 [facility] Comment on above: Performed By: #### C BC #### [facility] [address] [place], [place] [phone] Raymond Letty Erythrocyte distribution width (RBC) [Ratio] 12.2 % Normal 11.0-15.0 [facility] Comment on above: Performed By: #### C BC #### [facility] [address] [place] [address] Raymond Letty Hematocrit (Bld) [Volume fraction] 43.3 % Normal 36.0-48.0 [facility] Comment on above: Performed By: #### C BC #### [facility] [address] [place] [address] Raymond Letty Hemoglobin (Bld) [Mass/Vol] 14.6 g/dL Normal 12.0-16.0 [facility] Comment on above: Performed By: #### C BC #### [facility] [address] [place] [address] Raymond Letty IG # 0.01 10e3/ul Normal 0.00-0.03 [facility] Comment on above: Performed By: #### C BC #### [facility] [address] [place] [address] Raymond Letty IG % 0.2 % Normal 0.0-0.5 [facility] Comment on above: Performed By: #### C BC #### [facility] [address] [place] [address] Raymond Letty LYMPH # 2.0 103/ul Normal 1.2-3.8 [facility] Comment on above: Performed By: #### C BC #### [facility] [address] [place] [address] Raymond Letty Lymphocytes/100 WBC (Bld) 34.9 % Normal 20.5-60.0 [facility] Comment on above: Performed By: #### C BC #### [facility] [address] [place] [address] Raymond Saenz MANUAL DIFF REQ NO Normal [facility] Comment on above: Performed By: #### C BC #### [facility] [address] [place] [address] Raymond Saenz MCH (RBC) [Entitic mass] 28.3 pg Normal 26.7-34.0 [facility] Comment on above: Performed By: #### C BC #### [facility] [address] [place] [address] Raymond Saenz MCHC (RBC) [Mass/Vol] 33.7 g/dL Normal 29.9-35.2 [facility] Comment on above: Performed By: #### C BC #### [facility] [address] [place] [address] Raymond Saenz MCV (RBC) [Entitic vol] 84.1 fL Normal 81.0-99.0 [facility] Comment on above: Performed By: #### C BC #### [facility] [address] [place] [address] Raymond Saenz MONO # 0.5 103/ul Normal 0.3-0.8 [facility] Comment on above: Performed By: #### C BC #### [facility] [address] [place] [address] Raymond Saenz Monocytes/100 WBC (Bld) 7.9 % Normal 1.7-12.0 [facility] Comment on above: Performed By: #### C BC #### [facility] [address] [place] [address] Raymond Saenz NEUT # 2.9 103/ul Normal 1.4-6.5 [facility] Comment on above: Performed By: #### C BC #### [facility] [address] [place] [address] Raymond Saenz Neutrophils/100 WBC (Bld) 50.8 % Normal 43.0-75.0 [facility] Comment on above: Performed By: #### C BC #### [facility] [address] [place] [address] Raymondmari Saenz Platelet mean volume (Bld) [Entitic vol] 9.2 fL Critically low 9.5-13.5 [facility] Comment on above: Performed By: #### C BC #### [facility] [address] [place], [place] [address] Raymond Saenz PLT 259 103/ul Normal 150-450 [facility] Comment on above: Performed By: #### C BC #### [facility] [address] [id number] Raymond Saenz RBC 5.15 106/ul Normal 4.20-5.40 [facility] Comment on above: Performed By: #### C BC #### [facility] [address] [place], [place] [address] Raymondmari Saenz WBC 5.7 103/ul Normal 4.0-11.0 [facility] Comment on above: Performed By: #### C BC #### [facility] [address] [place] [address] Raymond Saenz GLYCOHEMOGLOBIN A1Con 2020 ADA RECOMMENDATION ADA THERAPEUTIC TARGET 6.0 - 7.0 ACTION SUGGESTED > 7.0 Normal [facility] Comment on above: Performed By: #### A 1C #### [facility] [address] [place], [place] [address] Raymond Saenz Glucose [Mass/Vol] 280 mg/dL Normal [facility] Comment on above: Performed By: #### A 1C #### [facility] [address] [place], [place] [address] Raymond Saenz HbA1c (Bld) [Mass fraction] 11.4 % Critically high <=6.0 [facility] Comment on above: Performed By: #### A 1C #### [facility] [address] [place], [place] [address] Raymond Saenz LIPID PROFILEon 11-06-2020 CHOL-HDL RATIO NORM SEE BELOW Normal [facility] Comment on above: Result Comment: 3.3 - 4.4 LOW RISK 4.4 - 7.1 AVERAGE RISK 7.1 - 11.0 MODERATE RISK >11.0 HIGH RISK Performed By: #### C MP, LIPID #### [facility] [address] [place], [place] [address] Raymond Letty Cholesterol [Mass/Vol] 282 mg/dL Critically high <=200 [facility] Comment on above: Performed By: #### C MP, LIPID #### [facility] [address] [id number] Raymond Letty Cholesterol in HDL [Mass/Vol] 41 mg/dL Normal [facility] Comment on above: Performed By: #### C MP, LIPID #### [facility] [address] [phone] Raymond Letty Cholesterol in LDL [Mass/Vol] 167.8 mg/dL Normal [facility] Comment on above: Performed By: #### C MP, LIPID #### [facility] [address] [phone] Raymond Letty Cholesterol.total/Ch olesterol in HDL [Mass ratio] 6.9 {ratio} Normal [facility] Comment on above: Performed By: #### C MP, LIPID #### [facility] [address] [phone] Raymond Letty HDL NORMAL > or = 60 mg/dl - LO W CARDIOVASCULAR RISK <40 mg/dl - HIGH CARDIOVASCULAR RISK Normal [facility] Comment on above: Performed By: #### C MP, LIPID #### [facility] [address] [place], [place] [address] Raymond Letty LDL CALC NORMAL SEE BELOW Normal [facility] Comment on above: Result Comment: <100 mg/dl OPTIMAL 100 - 129 mg/dl NEAR OR ABOVE OPTIMAL 130 - 159 mg/dl BORDERLINE HIGH 160 - 189 mg/dl HIGH >190 mg/dl VERY HIGH Performed By: #### C MP, LIPID #### [facility] [address] [phone] Raymond Letty Triglyceride [Mass/Vol] 366 mg/dL Critically high <=150 [facility] Comment on above: Performed By: #### C MP, LIPID #### [facility] [address] [address] Raymond Letty VLDL CALC 73.2 mg/dL Normal [facility] Comment on above: Performed By: #### C MP, LIPID #### [facility] [address] [place], [place] [address] Raymond Letty PROF 14(COMP METB)on 021 Albumin [Mass/Vol] 3.8 g/dL Normal 3.5-5.0 [facility] Comment on above: Performed By: #### C MP, LIPID #### [facility] [address] [place] [address] Raymond Letty Albumin/Globulin [Mass ratio] 0.9 {ratio} Normal [facility] Comment on above: Performed By: #### C MP, LIPID #### [facility] [address] [place], [place] [address] Raymond Letty ALP [Catalytic activity/Vol] 168 U/L Critically high 38-126 [facility] Comment on above: Performed By: #### C MP, LIPID #### [facility] [address] [place], [place] [address] Raymond Letty ALT [Catalytic activity/Vol] 42 U/L Normal 9-52 [facility] Comment on above: Performed By: #### C MP, LIPID #### [facility] [address] [place], [place] [address] Raymond Letty Anion gap [Moles/Vol] 12.6 mmol/L Normal [facility] Comment on above: Performed By: #### C MP, LIPID #### [facility] [address] [place], [place] [address] Raymond Letty AST [Catalytic activity/Vol] 22 U/L Normal 14-36 [facility] Comment on above: Performed By: #### C MP, LIPID #### [facility] [address] [place], [place] [address] Raymond Letty Bilirubin [Mass/Vol] 0.5 mg/dL Normal 0.2-1.3 [facility] Comment on above: Performed By: #### C MP, LIPID #### [facility] [address] [place], [place] [address] Raymond Letty Calcium [Mass/Vol] 9.0 mg/dL Normal 8.4-10.2 [facility] Comment on above: Performed By: #### C MP, LIPID #### [facility] [address] [phone] Raymond Letty Chloride [Moles/Vol] 97 mmol/L Critically low 98-107 [facility] Comment on above: Performed By: #### C MP, LIPID #### [facility] [address] [phone] Raymond Letty CO2 [Moles/Vol] 29.6 mmol/L Normal 22.0-30.0 [facility] Comment on above: Performed By: #### C MP, LIPID #### [facility] [address] [phone] Raymond Letty Creatinine [Mass/Vol] 0.83 mg/dL Normal 0.52-1.04 [facility] Comment on above: Performed By: #### C MP, LIPID #### [facility] [address] [place], [place] [address] Raymond Letty EGFR-AF RWANDAN >60 Normal >=60 [facility] Comment on above: Performed By: #### C MP, LIPID #### [facility] [address] [place], [place] [address] Raymond Letty EGFR-NON AF RWANDAN >60 Normal >=60 [facility] Comment on above: Performed By: #### C MP, LIPID #### [facility] [address] [place], [place] [address] Raymond Letty Globulin (S) [Mass/Vol] 4.0 g/dL Normal [facility] Comment on above: Performed By: #### C MP, LIPID #### [facility] [address] [place], [place] [address] Raymond Letty Glucose [Mass/Vol] 279 mg/dL Critically high 74-106 [facility] Comment on above: Performed By: #### C MP, LIPID #### [facility] [address] [place], [place] [address] Raymond Letty Potassium [Moles/Vol] 4.2 mmol/L Normal 3.4-5.0 [facility] Comment on above: Performed By: #### C MP, LIPID #### [facility] [address] [place], [place] [address] Raymond Letty Protein [Mass/Vol] 7.8 g/dL Normal 6.1-8.2 [facility] Comment on above: Performed By: #### C MP, LIPID #### [facility] [address] [phone] Raymond Letty Sodium [Moles/Vol] 135 mmol/L Critically low 137-145 [facility] Comment on above: Performed By: #### C MP, LIPID #### [facility] [address] [address] Raymond Letty Urea nitrogen [Mass/Vol] 12.0 mg/dL Normal 7.0-17.0 [facility] Comment on above: Performed By: #### C MP, LIPID #### [facility] [address] [address] Raymond Letty Urea nitrogen/Creatinine [Mass ratio] 14.5 mg/mg Normal [facility] Comment on above: Performed By: #### C MP, LIPID #### [facility] [address] [phone] Raymond Letty Vital Signs Date Time Vital Sign Value Performing Clinician Faci lity 11-01-2023 13:14-0400 Body height 157.48 cm [facility] 11-01-2023 13:14-0400 Body mass index (BMI) [Ratio] 26.2 kg/m2 [facility] 11-01-2023 13:14-0400 Body weight 64.86 kg [facility] 11-01-2023 13:14-0400 Diastolic blood pressure 88 mm[Hg] [facility] 11-01-2023 13:14-0400 Heart rate 101 /min [facility] 11-01-2023 13:14-0400 Systolic blood pressure 153 mm[Hg] [facility] 10-13-2022 11:45-0400 Body height 157.48 cm Matthias Matta Other [facility] Other Encounters Encounter Date Encounter Type Care Provider Facility Start: 11-01-2023 End: 11-01-2023 Patient encounter procedure [facility] Work Phone: Start: 11-01-2023 End: 11-01-2023 ambulatory Nevaeh Chappell [facility] Work Phone: Start: 11-01-2023 End: 11-01-2023 Departed Referred MD Nevaeh Chappell Work Phone: [facility] [place] Work Phone: Start: 11-01-2023 Encounter for gynecological examination (general) (routine) without abnormal findings Nevaeh Chappell [facility] Start: 08-23-2023 End: 08-23-2023 ambulatory [facility] Work Phone: Start: 08-23-2023 End: 08-23-2023 Patient encounter procedure [facility] Work Phone: Start: 12-03-2022 End: 12-03-2022 ambulatory Nevaeh Chappell Other [facility] Other Start: 12-03-2022 Telephone encounter Nevaeh Chappell [facility] Start: 11-02-2022 End: 11-02-2022 ambulatory Nevaeh Chappell Other [facility] Other Start: 11-02-2022 Nursing evaluation o f patient and report Nevaeh Chappell [facility] Start: 10-13-2022 End: 10-13-2022 ambulatory Nevaeh Chappell Other [facility] Other Start: 10-13-2022 Nursing evaluation o f patient and report Matthias Matta [facility] Start: 10-13-2022 Telephone encounter Nevaeh Chappell [facility] Start: 05-07-2021 End: 05-08-[address] NEVAEH CHAPPELL Facility:[facility] Start: 04-03-2021 End: 04-04-[address] NEVAEH CHAPPELL Facility:[facility] Start: 03-15-2021 Gynecological examin ation normal Nevaeh Chappell Other [facility] Other Start: 03-13-2021 End: 03-14-[address] NEVAEH CHAPPELL Facility:[facility] Start: 11-06-2020 End: 11-07-[address] NEVAEH CHAPPELL Facility:[facility] Start: 08-06-2020 Problem, abnormal examination Nevaeh Chappell Other [facility] Other Procedures Date Procedure Procedure Detail Performing Clinician Start: 05-02-2015 Screening mammography Jung Chappell Other Screening for malign ant neoplasm of breast Nevaeh Chappell Other Plan of Treatment Date Care Activity Detail Author Start: 11-01-2023 Patient referral [facility] Work Phone: Start: 11-01-2023 [facility] Chlamydia trachomati s rRNA [Presence] in Cervix by IDA with probe detection [facility] Human papilloma viru s 16+18+31+33+35+39+45+51+52+56+58 +59+66+68 DNA [Presence] in Cervix by Probe with signal amplification [facility] Human papilloma viru s 16+18+31+33+35+39+45+51+52+56+58 +59+68 DNA [Presence] in Cervix by Probe with signal amplification [facility] MG Breast - bilateral Screening [facility] Neisseria gonorrhoea e rRNA [Presence] in Cervix by IDA with probe detection [facility] Patient referral [facility] Work Phone: Payers Date Payer Category Payer [employer] [id number] 2023 Self-pay [id number] 1965 Unknown [id number] [id number] [id number] 1965 Unknown [id number] 2.16.84 [id number] 1965 Unknown [id number] 2.16.84 [id number] 1965 Unknown [id number] 2.16.84 [id number] 1960 Unknown [id number] Unknown [facility] [id number] Unknown [id number] 2.16.8 [id number] Social History Date Type Detail Facility Unknown if ever smoked [facility] Other Sex Assigned At Sex Assigned At [facility] Other Start: 10-19-2016 Tobacco smoking status NHIS Never smoked tobacco (finding) [facility] Start: 1965 Sex Assigned At Female [facility] Hospital Discharge instructions 11-01-2023 Note Date & Type Note Facility 11-01-2023 Hospital Discharge instructions Ambulatory OrdersReferral to Gastroenterology Time Frame: 11/01/23, Location: None [facility] Work Phone: Evaluation note 11-02-2022 Note Date & Type Note Facility 11-02-2022 Evaluation note Encounter Date Diagnosis Assessment Notes Oct, Dysuria (ICD-10 - R30.0) [facility] Other Evaluation note 10-13-2022 Note Date & Type Note Facility 10-13-2022 Evaluation note Encounter Date Diagnosis Assessment Notes Oct, Dysuria (ICD-10 - R30.0) [facility] Other Evaluation note Note Date & Type Note Facility Evaluation note No Information [facility] Other Evaluation note Note Date & Type Note Facility Evaluation note No assessment information availa ble [facility] Work Phone: Evaluation note Note Date & Type Note Facility Evaluation note Diagnosis Onset Date Screening mammogram for breast cancer acute [facility] Work Phone: Evaluation note Note Date & Type Note Facility Evaluation note Diagnosis Onset Date Screening for colon cancer a cute Screening mammogram for breast cancer acute Well woman exam acute [facility] Work Phone: History general Narrative - Reported Note Date & Type Note Facility History general Narrative - Reported Type Medical History Diabetes Medical History Hypertension Medical History Kidney calculi Surgical History C section Surgical History lithotripsy Hospitalization History kidney stones [facility] Other Summary Purpose Family History No Family [...] DATE CREATED AUTHOR AUTHOR'S ORGANIZ ATION 06/24/2022 [facility] DATE CREATED AUTHOR AUTHOR'S ORGANIZ ATION 11/07/2023 [facility] REASON FOR VISIT (unrecogniz ed [...] BE BASED ON THE PRIMARY CLINICAL RECORDS. [facility]. provides no warranty or guarantee of the accuracy or completeness of information in this document.
[2024-04-13 12:19] LABS: Basophils Absolute Auto 0.1 10^3/uL (0.0-0.1); Basophils Percent Auto 0.8 % (0.2-2.0); Eosinophils Absolute Auto 0.1 10^3/uL (0.0-0.7); Eosinophils Percent Auto 1.4 % (0.9-7.0); Hemoglobin 14.6 g/dL (12.0-16.0); Immature Granulocytes Abs Auto 0.01 10^3/uL (0.00-0.03); Immature Granulocytes Pct Auto 0.2 % (0.0-0.5); Lymphocytes Absolute Auto 2.1 10^3/uL (1.2-3.8); Lymphocytes Percent Auto 35.6 % (20.5-60.0); Mean Corpuscular Hemoglobin 28.6 pg (26.7-34.0); Mean Corpuscular Volume 84.3 fL (81.0-99.0); Mean Platelet Volume 8.7 fL (9.5-13.5); Monocytes Absolute Auto 0.4 10^3/uL (0.3-0.8); Monocytes Percent Auto 6.3 % (1.7-12.0); Neutrophils Absolute Auto 3.3 10^3/uL (1.4-6.5); Neutrophils Percent Auto 55.7 % (43.0-75.0); Platelet Count 296 10^3/uL (150-450); White Blood Count 5.9 10^3/uL (4.0-11.0)
[2024-04-13 12:37] LABS: Estimated Average Glucose 255 mg/dL; Glycohemoglobin A1C 10.5 % (4.5-6.2)
[2024-04-13 12:53] LABS: Alanine Aminotransferase 37 U/L (14-59); Albumin Globulin Ratio 1.1; Albumin Level 4.1 g/dL (3.4-5.0); Alkaline Phosphatase 146 U/L (46-116); Anion Gap 13.3; Aspartate Amino Transferase 20 U/L (15-37); BUN Creatinine Ratio 15.1; Bilirubin Total 0.6 mg/dL (0.2-1.0); Calcium 9.6 mg/dL (8.5-10.1); Carbon Dioxide 26.7 mmol/L (21.0-32.0); Chloride 100 mmol/L (98-107); Chol HDL Ratio 4.5; Cholesterol 253 mg/dL (<=200); Estimated GFR (African America >60 (>=60 mL/min/1.73m^2); Estimated GFR (Non-African Ame >60 (>=60 mL/min/1.73m^2); Globulin 3.7 g/dL; Glucose 216 mg/dL (74-106); HDL Cholesterol 56 mg/dL (40-60); Sodium 136 mmol/L (136-145); Thyroid Stimulating Hormone 1.681 uIU/mL (0.358-3.740); Total Protein 7.8 g/dL (6.4-8.2); Triglycerides 149 mg/dL (<=150); VLDL CHOLESTEROL 29.8 mg/dL
[2024-04-13 12:54] LABS: Creatinine Urine Random 148.51 mg/dL (20.00-300.00); Microalbum Creatinine Ratio Ur 8.7 mg/g (0.0-29.9); Microalbumin Urine Random <1.3 mg/dL (<=30.0)
== END 2024-04-13 11:30 | disposition home or self-care (01) ==
LOC: LAB 11:32
PROVIDERS: PCP Family Medicine; Visit Provider Family Medicine
DX: E11.65 Type 2 diabetes mellitus with hyperglycemia (principal)
CPT/HCPCS: 36415; 80053; 80061; 82043; 82570; 83036; 84443; 85025

== ENCOUNTER 2024-07-22 10:00 | Emergency (ER) | payer BC, SELFPAY ==
[2024-07-22 10:04] VITALS: BP 177/99; PULSE 86; TEMP 36.9; O2SAT 100; BMI 27.4
--- OUTSIDE RECORDS SUMMARY | 2024-07-22 10:12 | XMS_ITS | CCD ---
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 Name Role Phone DR NEVAEH GILMORE Admitting Unavailable MANDO, DR NEVAEH Martinez Primary Care Unavailable GILMORE, DR NEVAEH Martinez Consulting Unavailable MANDO, DR NEVAEH Martinez Attending Unavailable MANDO, DR NEVAEH Martinez Primary Care Unavailable NHAN OVERTON Admitting Unavailable NHAN OVERTON Consulting Unavailable NHAN OVERTON Attending Unavailable MANDO, DR NEVAEH Martinez Primary Care Unavailable WEST, DR CHUCHO Monsalve Consulting Unavailable GILMORE, DR NEVAEH Martinez Attending Unavailable GILMORE, DR NEVAEH Martinez Admitting Unavailable GILMORE, DR NEVAEH Martinez Consulting Unavailable GILMORE, DR NEVAEH Martinez Admitting Unavailable GILMORE, DR NEVAEH Martinez Primary Care Unavailable GILMORE, DR NEVAEH Martinez Consulting Unavailable GILMORE, DR NEVAEH Martinez Attending Unavailable Nevaeh Gilmore Unavailable Matthias Matta Unavailable MD Nevaeh Gilmore Attending Provider Nevaeh Gilmore Attending Unavailable Nevaeh Gilmore Admitting Unavailable NON STAFF Primary Care Unavailable Allergies Allergy Classification Reported Allergen(s) Allergy Type Date of Onset Reaction(s) Facility (1 source) Penicillins Drug allergy (disorder) 03-21-19 15 [facility] Repository (4 sources) Angiotensin-convert ing enzyme inhibitor agent Drug allergy 05-02-19 16 Unknown [facility] Other (5 sources) Penicillin G Benzathine; Translations: [penicillin G benzathine] Drug allergy 11-01-19 24 passed out [facility] Repository (4 sources) Penicillin V Drug Allergy 05-02-19 16 Unknown [facility] Other (4 sources) Allergies Reconciled Propensity to adverse reactions Unknown [facility] Other (4 sources) Substance with penicillin structure and antibacterial mechanism of action (substance) Drug allergy 05-03-19 18 Unknown [facility] Other (4 sources) patient allergy list reviewed by nurse or physicia Propensity to adverse reactions 08-16-19 19 Comment:Done [facility] Other (4 sources) DEAN inhibitor use, contraindication Propensity to adverse reactions 05-02-19 16 Comment:advers e rxn/side effects [facility] Other Medications Current Medications Medication Drug Class(es) Dates Sig (Normalized) Sig (Original) 0.25 MG, 0.5 MG Dose 3 ML semaglutide 0.68 MG/ML Pen Injector [Ozempic] (4 sources) Start: 07-30-2022 inject 0.5 mg by subcutaneous injection every week Ozempic (0.25 or 0.5 MG/DOSE) 2 MG/3ML 0.5mg Subcutaneous weekly for 90 days July, Active aspirin 81 mg chewable tablet (7 sources) Platelet Aggregation Inhibitor, Nonsteroidal Anti-inflammatory Drug Start: 10-26-2023 take 1 tablet by mouth once daily Aspirin 81 mg tablet,chewable Active 81 MG PO Daily October 25, 2023 11:00pm Baby Aspirin Act crow azithromycin 250 mg oral tablet (4 sources) Macrolide Antimicrobial Start: 07-30-2022 Azithromycin 250 MG as directed Orally 2 tabs po today, then 1 tab daily x 4 more days for 5 July, Active losartan potassium 50 mg oral tablet (3 sources) Angiotensin 2 Receptor Guillermo Start: 10-26-2023 take 1 tablet by mouth once daily Losartan 50 mg tablet Active 50 MG PO Daily October 25, 2023 11:00pm Losartan Potassium-HCTZ (4 sources) Losartan Potassium-HCTZ Active 24 hr metFORMIN hydrochloride 500 mg extended release oral tablet (5 sources) Biguanide Start: 03-29-2024 take 3 tablets by mouth once daily Metformin 500 mg tablet extended release 24 hr Active 0 .ROUTE .COMPLEX 270 March 29, 2024 12:17pm TAKE 3 TABLETS BY MOUTH ONCE DAILY 90 Start: 09-10-2023 End: 03-29-2024 take 3 tablets by mouth once daily Metformin 500 mg tablet Discontinued 1500 MG PO Daily September 09, 2023 11:00pm March 29, 2024 12:17pm Start: 09-10-2023 take 1500 mg by mout h once daily Metformin Active 1500 MG PO Daily September 10, 2023 12:00am take 3 tablets by mo uth every twenty-four hours metFORMIN HCl ER 500 MG 3 tablets Orally daily for 30 days Active Ozempic (0.25 or 0.5 MG/DOSE) 2 MG/1.5ML (1 source) Ozempic (0.25 or 0.5 MG/DOSE) 2 MG/1.5ML INJECT 0.5MG MILLIGRAM UNDER SKIN ONCE A WEEK for 84 Active Semaglutide (4 sources) Start: 03-29-2024 inject 0.5 mg by subcutaneous injection every week Semaglutide (Ozempic) 0.25 mg or 0.5 mg (2 mg/3 mL) pen injector Active 0 .ROUTE .COMPLEX 9 March 29, 2024 12:17pm INJECT 0.5 MG SUBCUTANEOUSLY WEEKLY Start: 10-26-2023 End: 03-29-2024 inject 0.5 mg by subcutaneous injection every week Semaglutide (Ozempic) 0.25 mg or 0.5 mg (2 mg/3 mL) pen injector Discontinued MG SUBCUT October 25, 2023 11:00pm March 29, 2024 12:17pm FreeTextSi.5mg Subcutaneous weekly; Note: Source Status: Taking; Refills: 2; Provider: Mando Martinez Start: 10-26-2023 inject 0.5 mg by sub cutaneous injection every week Semaglutide (Ozempic) 0.25 mg or 0.5 mg (2 mg/3 mL) pen injector Active MG SUBCUT October 26, 2023 12:00am FreeTextSi.5mg Subcutaneous weekly; Note: Source Status: Taking; Refills: 2; Provider: Mando Martinez Completed/Discontinued Medications Medication Drug Class(es) Dates Sig (Normalized) Sig (Original) 0.25 mg, 0.5 mg dose 1.5 ml semaglutide 1.34 mg/ml pen injector (6 sources) Start: 10-26-2023 End: 11-01-2023 Semaglutide (Ozempic) 0.25 mg or 0.5 mg(2 mg/1.5 mL) pen injector Discontinued MG SUBCUT October 25, 2023 11:00pm November 01, 2023 12:17pm FreeTextSig: INJECT 0.5MG MILLIGRAM UNDER SKIN ONCE A WEEK; Note: Source Status: Taking; Refills: 1; Qty: 4.5; Provider: Mando Herring ( ) Ozempic (0.25 or 0.5 MG/DOSE) 2 MG/1.5ML INJECT 0.5MG MILLIGRAM UNDER SKIN ONCE A WEEK for 84 Active sulfamethoxazole 800 mg / trimethoprim 160 mg oral tablet (9 sources) Dihydrofolate Reductase Inhibitor Antibacterial, Sulfonamide Antimicrobial Start: 08-23-2023 End: 11-01-2023 take 1 tablet by mouth twice daily Sulfamethoxazole-Trimethoprim 800-160 mg tablet Discontinued 1 TAB PO Twice daily August 22, 2023 11:00pm November 01, 2023 12:18pm Start: 10-13-2022 take 1 tablet by augusta th every twelve hours Bactrim DS 800-160 MG 1 tablet Orally Twice a day for 10 day(s) Oct, Active Problems Active Problems Problem Classification Problem Date Documented Date Episodic/Chronic Anxiety disorders (4 sources) Anxiety disorder; Translations: [Anxiety disorder, unspecified] Chronic Cardiac dysrhythmias (4 sources) Palpitations; Translations: [PALPITATIONS] Onset: 05-07-2021 Episodic Diabetes mellitus with complications (18 sources) Type 2 diabetes mellitus with hyperglycemia; [...] 05-02-2015 Chronic Genitourinary symptoms and ill-defined conditions (10 sources) Dysuria; Translations: [Dysuria] Episodic Menopausal disorders [...] conditions (not mental disorders or infectious disease) (16 sources) Electrocardiogram abnormal; Translations: [Abnormal electrocardiogram [ECG] [...] PAP Chlamydia IDA Negative Normal Negative [facility] Comment on above: Performed By: #### P AP #### [facility] , PAP Gonococcus Negative Normal Negative [facility] Comment on above: Result Comment: Perf ormed at: WB - [facility] [address] [id number] Senior Application Software Engineer: Benita Sewell MD, Phone: [phone] Performed at: =G - [facility] [address] [id number] Senior Application Software Engineer: Benita Sewell MD, Phone: [phone] PERFORMED BY: [place] [address] [place] [address] PATHOLOGIST MIGRATION AGENT ERASMO MCKEON M.D. Performed By: #### P AP #### [facility] , Pap IG Note Normal . [facility] Comment on above: Result Comment: TEST S RESULT FLAG UNITS REF RANGE LAB Clinician Provided Cytology Information No. of containers..01 ThinPrep Vial DIAGNOSIS: 01 NEGATIVE FOR INTRAEPITHELIAL LESION OR MALIGNANCY. Specimen adequacy: 01 Satisfactory for evaluation. Endocervical and/or squamous metaplastic cells (endocervical component) are present. Performed by: 01 Carlos Batista, Manufacturing Area Manager (ASCP) . 01 Note: Note 01 The [...] High,A-Abnormal,AA-Critical Abnormal Performed at: 01 WB [facility] [address] [place] [address] Benita Sewell MD, Performed By: #### P AP [id number] #### [facility] , Laboratory - Chemistry and C hemistry - challengeon 06-10-2024 Bilirubin Ql (U) Negative [facility] Glucose (U) [Mass/Vol] Negative [facility] Ketones Ql (U) 5 [facility] pH (U) 6.5 [pH] [facility] Specific gravity (U) [Rel density] 1.000 [facility] Urobilinogen (U) [Mass/Vol] 0.2 mg/dL [facility] Laboratory - Specimen inform ationon 08-23-2023 Appearance (U) cloudy [facility] Color (U) yellow [facility] Laboratory - Urinalysison Leukocyte esterase Test strip Ql (U) ++ [facility] Nitrite Ql (U) Negative [facility] Protein Ql (U) + [facility] No Panel Informationon 08-22 Urine Occult Blood Negative [facility] 36on 06-24-2022 36 Noted on prescriptio n for patient to schedule appointment prior to running out of meds. Normal [facility] ECHOCARDIO M/2D COMPLETEon 0 05-07-2021 ECHOCARDIO M/2D COMPLETE Patient: MARISELA SANTIAGO Exam Date: 05/07/2021 : 1965 Gender:F Ordering : NHAN OVERTON Admission #: [id number] Family : Order #: [id number] CLICK HERE TO VIEW EXAM ECHOCARDIOGRAM REPORT [...] (Antegrade Flow): 1.32 m/s AoV Area (Peak Rayn): 2.66 cm2, 2.66 cm2 Peak Velocity(Antegrade Flow): 1.32 m/s Peak Gradient(Antegrade Flow): 6.96 mm[Hg] Tricuspid Valve Peak Velocity: 0.64 m/s, 0.64 m/s Pulmonic Valve Right Atrium Dictated by: Quentin Huynh M.D. on 05/07/2021 at 16:49 Approved by: Quentin Huynh M.D. on 05/07/2021 at 16:51 Normal [facility] NM STRESS/REST MULTIon 04-03 TX STRESS/REST MULTI Patient: MARISELA SANTIAGO Exam Date: 04/03/2021 : 1965 Gender:F Ordering : DR NEVAEH GILMORE M.D. Admission #: [id number] Family : Order #: [id number] CLICK HERE TO VIEW EXAM RADIOLOGY REPORT [...] MD on 04/03/2021 at 14:37 Normal [facility] CBC AUTO DIFFon 11-06-2020 BASO # 0.1 103/ul Normal 0.0-0.1 [facility] Comment on above: Performed By: #### C BC #### [facility] [address] [place] [address] Raymond Letty Basophils/100 WBC (Bld) 0.9 % Normal 0.2-2.0 [facility] Comment on above: Performed By: #### C BC #### [facility] [address] [place] [address] Raymond Letty EO # 0.3 103/ul Normal 0.0-0.7 [facility] Comment on above: Performed By: #### C BC #### [facility] [address] [place] [address] Raymond Letty Eosinophils/100 WBC (Bld) 5.3 % Normal 0.9-7.0 [facility] Comment on above: Performed By: #### C BC #### [facility] [address] [place] [address] Raymond Letty Erythrocyte distribution width (RBC) [Ratio] 12.2 % Normal 11.0-15.0 [facility] Comment on above: Performed By: #### C BC #### [facility] [address] [place] [address] Raymond Letty Hematocrit (Bld) [Volume fraction] 43.3 % Normal 36.0-48.0 [facility] Comment on above: Performed By: #### C BC #### [facility] [address] [place] [address] Raymond Letty Hemoglobin (Bld) [Mass/Vol] 14.6 g/dL Normal 12.0-16.0 [facility] Comment on above: Performed By: #### C BC #### [facility] [address] [place] [address] Raymondmari Saenz IG # 0.01 10e3/ul Normal 0.00-0.03 [facility] Comment on above: Performed By: #### C BC #### [facility] [address] [place] [address] Raymondmari Saenz IG % 0.2 % Normal 0.0-0.5 [facility] Comment on above: Performed By: #### C BC #### [facility] [address] [place] [address] Raymondmari Saenz LYMPH # 2.0 103/ul Normal 1.2-3.8 [facility] Comment on above: Performed By: #### C BC #### [facility] [address] [place] [address] Raymond Saenz Lymphocytes/100 WBC (Bld) 34.9 % Normal 20.5-60.0 [facility] Comment on above: Performed By: #### C BC #### [facility] [address] [place] [address] Raymond Saenz MANUAL DIFF REQ NO Normal [facility] Comment on above: Performed By: #### C BC #### [facility] [address] [place] [address] Raymond Saenz MCH (RBC) [Entitic mass] 28.3 pg Normal 26.7-34.0 [facility] Comment on above: Performed By: #### C BC #### [facility] [address] [place] [address] Raymondmari Saenz MCHC (RBC) [Mass/Vol] 33.7 g/dL Normal 29.9-35.2 [facility] Comment on above: Performed By: #### C BC #### [facility] [address] [place] [address] Raymondmari Saenz MCV (RBC) [Entitic vol] 84.1 fL Normal 81.0-99.0 [facility] Comment on above: Performed By: #### C BC #### [facility] [address] [id number] Raymondmari Grayen MONO # 0.5 103/ul Normal 0.3-0.8 [facility] Comment on above: Performed By: #### C BC #### [facility] [address] [id number] Raymond Letty Monocytes/100 WBC (Bld) 7.9 % Normal 1.7-12.0 [facility] Comment on above: Performed By: #### C BC #### [facility] [address] [id number] Raymond Letty NEUT # 2.9 103/ul Normal 1.4-6.5 [facility] Comment on above: Performed By: #### C BC #### [facility] [address] [place], [place] [phone] Raymond Letty Neutrophils/100 WBC (Bld) 50.8 % Normal 43.0-75.0 [facility] Comment on above: Performed By: #### C BC #### [facility] [address] [place], [place] [id number] Rayomndmari Grayen Platelet mean volume (Bld) [Entitic vol] 9.2 fL Critically low 9.5-13.5 [facility] Comment on above: Performed By: #### C BC #### [facility] [address] [place], [place] [phone] Raymond Letty PLT 259 103/ul Normal 150-450 [facility] Comment on above: Performed By: #### C BC #### [facility] [address] [place], [place] [phone] Raymond Letty RBC 5.15 106/ul Normal 4.20-5.40 [facility] Comment on above: Performed By: #### C BC #### [facility] [address] [place], [place] [phone] Raymond Letty WBC 5.7 103/ul Normal 4.0-11.0 [facility] Comment on above: Performed By: #### C BC #### [facility] [address] [place], [place] [address] Raymond Letty GLYCOHEMOGLOBIN A1Con 2020 ADA RECOMMENDATION ADA THERAPEUTIC TARGET 6.0 - 7.0 ACTION SUGGESTED > 7.0 Normal [facility] Comment on above: Performed By: #### A 1C #### [facility] [address] [place], [place] [address] Raymond Letty Glucose [Mass/Vol] 280 mg/dL Normal [facility] Comment on above: Performed By: #### A 1C #### [facility] [address] [place], [place] [address] Raymond Letty HbA1c (Bld) [Mass fraction] 11.4 % Critically high <=6.0 [facility] Comment on above: Performed By: #### A 1C #### [facility] [address] [place], [place] [address] Raymond Letty LIPID PROFILEon 11-06-2020 CHOL-HDL RATIO NORM SEE BELOW Normal [facility] Comment on above: Result Comment: 3.3 - 4.4 LOW RISK 4.4 - 7.1 AVERAGE RISK 7.1 - 11.0 MODERATE RISK >11.0 HIGH RISK Performed By: #### C MP, LIPID #### [facility] [address] [place] [address] Raymond Letty Cholesterol [Mass/Vol] 282 mg/dL Critically high <=200 [facility] Comment on above: Performed By: #### C MP, LIPID #### [facility] [address] [place], [place] [address] Raymond Letty Cholesterol in HDL [Mass/Vol] 41 mg/dL Normal [facility] Comment on above: Performed By: #### C MP, LIPID #### [facility] [address] [place], [place] [address] Raymond Letty Cholesterol in LDL [Mass/Vol] 167.8 mg/dL Normal [facility] Comment on above: Performed By: #### C MP, LIPID #### [facility] [address] [place], [place] [address] Raymond Letty Cholesterol.total/Ch olesterol in HDL [Mass ratio] 6.9 {ratio} Normal [facility] Comment on above: Performed By: #### C MP, LIPID #### [facility] [address] [phone] Raymond Letty HDL NORMAL > or = 60 mg/dl - LO W CARDIOVASCULAR RISK <40 mg/dl - HIGH CARDIOVASCULAR RISK Normal [facility] Comment on above: Performed By: #### C MP, LIPID #### [facility] [address] [phone] Raymond Letty LDL CALC NORMAL SEE BELOW Normal [facility] Comment on above: Result Comment: <100 mg/dl OPTIMAL 100 - 129 mg/dl NEAR OR ABOVE OPTIMAL 130 - 159 mg/dl BORDERLINE HIGH 160 - 189 mg/dl HIGH >190 mg/dl VERY HIGH Performed By: #### C MP, LIPID #### [facility] [address] [place] [address] Raymond Letty Triglyceride [Mass/Vol] 366 mg/dL Critically high <=150 [facility] Comment on above: Performed By: #### C MP, LIPID #### [facility] [address] [phone] Raymond Letty VLDL CALC 73.2 mg/dL Normal [facility] Comment on above: Performed By: #### C MP, LIPID #### [facility] [address] [phone] Raymondmari Grayen PROF 14(COMP METB)on 021 Albumin [Mass/Vol] 3.8 g/dL Normal 3.5-5.0 [facility] Comment on above: Performed By: #### C MP, LIPID #### [facility] [address] [place], [place] [phone] Raymond Letty Albumin/Globulin [Mass ratio] 0.9 {ratio} Normal [facility] Comment on above: Performed By: #### C MP, LIPID #### [facility] [address] [place], [place] [phone] Raymond Letty ALP [Catalytic activity/Vol] 168 U/L Critically high 38-126 [facility] Comment on above: Performed By: #### C MP, LIPID #### [facility] [address] [place] [address] Raymond Letty ALT [Catalytic activity/Vol] 42 U/L Normal 9-52 [facility] Comment on above: Performed By: #### C MP, LIPID #### [facility] [address] [phone] Raymond Letty Anion gap [Moles/Vol] 12.6 mmol/L Normal [facility] Comment on above: Performed By: #### C MP, LIPID #### [facility] [address] [phone] Raymond Letty AST [Catalytic activity/Vol] 22 U/L Normal 14-36 [facility] Comment on above: Performed By: #### C MP, LIPID #### [facility] [address] [phone] Raymond Letty Bilirubin [Mass/Vol] 0.5 mg/dL Normal 0.2-1.3 [facility] Comment on above: Performed By: #### C MP, LIPID #### [facility] [address] [place] [address] Raymond Letty Calcium [Mass/Vol] 9.0 mg/dL Normal 8.4-10.2 [facility] Comment on above: Performed By: #### C MP, LIPID #### [facility] [address] [place] [address] Raymond Letty Chloride [Moles/Vol] 97 mmol/L Critically low 98-107 [facility] Comment on above: Performed By: #### C MP, LIPID #### [facility] [address] [phone] Raymond Letty CO2 [Moles/Vol] 29.6 mmol/L Normal 22.0-30.0 [facility] Comment on above: Performed By: #### C MP, LIPID #### [facility] [address] [phone] Raymond Letty Creatinine [Mass/Vol] 0.83 mg/dL Normal 0.52-1.04 [facility] Comment on above: Performed By: #### C MP, LIPID #### [facility] [address] [place], [place] [phone] Raymond Letty EGFR-AF CAMBODIAN >60 Normal >=60 [facility] Comment on above: Performed By: #### C MP, LIPID #### [facility] [address] [place], [place] [phone] Raymond Letty EGFR-NON AF CAMBODIAN >60 Normal >=60 [facility] Comment on above: Performed By: #### C MP, LIPID #### [facility] [address] [phone] Raymond Letty Globulin (S) [Mass/Vol] 4.0 g/dL Normal [facility] Comment on above: Performed By: #### C MP, LIPID #### [facility] [address] [address] Raymond Letty Glucose [Mass/Vol] 279 mg/dL Critically high 74-106 T [facility] Comment on above: Performed By: #### C MP, LIPID #### [facility] [address] [place] [address] Raymond Letty Potassium [Moles/Vol] 4.2 mmol/L Normal 3.4-5.0 [facility] Comment on above: Performed By: #### C MP, LIPID #### [facility] [address] [place], [place] [phone] Raymond Letty Protein [Mass/Vol] 7.8 g/dL Normal 6.1-8.2 [facility] Comment on above: Performed By: #### C MP, LIPID #### [facility] [address] [place] [address] Raymond Letty Sodium [Moles/Vol] 135 mmol/L Critically low 137-145 Th [facility] Comment on above: Performed By: #### C MP, LIPID #### [facility] [address] [place], [place] [phone] Raymond Letty Urea nitrogen [Mass/Vol] 12.0 mg/dL Normal 7.0-17.0 [facility] Comment on above: Performed By: #### C MP, LIPID #### [facility] [address] [place], [place] [phone] Raymond Letty Urea nitrogen/Creatinine [Mass ratio] 14.5 mg/mg Normal [facility] Comment on above: Performed By: #### C MP, LIPID #### [facility] [address] [address] Raymond Saenz Vital Signs Date Time Vital Sign Value Performing Clinician Larry torres 04-13-2024 10:54-0500 Body height 157.48 cm [facility] 04-13-2024 10:54-0500 Body mass index (BMI) [Ratio] 26.6 kg/m2 [facility] 04-13-2024 10:54-0500 Body weight 66.22 kg [facility] 04-13-2024 10:54-0500 Diastolic blood pressure 83 mm[Hg] [facility] 04-13-2024 10:54-0500 Heart rate 92 /min [facility] 04-13-2024 10:54-0500 Systolic blood pressure 143 mm[Hg] [facility] 11-01-2023 13:14-0400 Body height 157.48 cm [facility] 11-01-2023 13:14-0400 Body mass index (BMI) [Ratio] 26.2 kg/m2 [facility] 11-01-2023 13:14-0400 Body weight 64.86 kg [facility] 11-01-2023 13:14-0400 Diastolic blood pressure 88 mm[Hg] [facility] 11-01-2023 13:14-0400 Heart rate 101 /min [facility] 11-01-2023 13:14-0400 Systolic blood pressure 153 mm[Hg] [facility] 10-13-2022 11:45-0400 Body height 157.48 cm Matthias Matta Other [facility] Other Encounters Encounter Date Encounter Type Care Provider Facility Start: 04-13-2024 End: 04-13-[address] [facility] Work Phone: Start: 04-13-2024 End: 04-13-2024 Patient encounter procedure [facility] Work Phone: Start: 11-01-2023 End: 11-01-2023 Patient encounter procedure [facility] Work Phone: Start: 11-01-2023 End: 11-01-2023 ambulatory Nevaeh Gilmore [facility] Work Phone: Start: 11-01-2023 End: 11-01-2023 Departed Referred MD Nevaeh Gilmore Work Phone: [facility] [place] Work Phone: Start: 11-01-2023 Encounter for gynecological examination (general) (routine) without abnormal findings Nevaeh Gilmore [facility] Start: 08-23-2023 End: 08-23-[address] [facility] Work Phone: Start: 08-23-2023 End: 08-23-2023 Patient encounter procedure [facility] Work Phone: Start: 12-03-2022 End: 12-03-2022 ambulatory Nevaeh Gilmore Other [facility] Other Start: 12-03-2022 Telephone encounter Nevaeh Gilmore [facility] Start: 11-02-2022 End: 11-02-2022 ambulatory Nevaeh Gilmore Other [facility] Other Start: 11-02-2022 Nursing evaluation o f patient and report Nevaeh Gilmore [facility] Start: 10-13-2022 End: 10-13-2022 ambulatory Nevaeh Gilmore Other [facility] Other Start: 10-13-2022 Nursing evaluation o f patient and report Matthias Matta [facility] Start: 10-13-2022 Telephone encounter Nevaeh Gilmore [facility] Start: 05-07-2021 End: 05-08-[address] NEVAEH GILMORE Facility:[facility] Start: 04-03-2021 End: 04-04-[address] NEVAEH GILMORE Facility:[facility] Start: 03-15-2021 Gynecological examin ation normal Nevaeh Gilmore Other [facility] Other Start: 03-13-2021 End: 03-14-[address] NEVAEH GILMORE Facility:[facility] Start: 11-06-2020 End: 11-07-[address] NEVAEH GILMORE Facility:[facility] Start: 08-06-2020 Problem, abnormal examination Nevaeh Gilmore Other [facility] Other Procedures Date Procedure Procedure Detail Performing Clinician Start: 05-02-2015 Screening mammography M daniiberto Gilmore Other Screening for malign ant neoplasm of breast Nevaeh Gilmore Other Plan of Treatment Date Care Activity Detail Author Start: 11-01-2023 Patient referral [facility] Work Phone: Start: 11-01-2023 [facility] Chlamydia trachomati s rRNA [Presence] in Cervix by IDA with probe detection [facility] Comprehensive metabo lic 2000 panel - Serum or Plasma [facility] Human papilloma viru s 16+18+31+33+35+39+45+51+52+56+58 +59+66+68 DNA [Presence] in Cervix by Probe with signal amplification [facility] Human papilloma viru s 16+18+31+33+35+39+45+51+52+56+58 +59+68 DNA [Presence] in Cervix by Probe with signal amplification [facility] MG Breast - bilateral Screening [facility] Neisseria gonorrhoea e rRNA [Presence] in Cervix by IDA with probe detection [facility] Patient referral [facility] Work Phone: [facility] Payers Date Payer Category Payer [employer] [id number] 2023 Self-pay [id number] 1965 Unknown [id number] [id number] 1965 Unknown [id number] 2.16.84 [id number] 1965 Unknown [id number] 2.16.84 [id number] 1965 Unknown [id number] 2.16.84 [id number] 1960 Unknown [id number] Unknown [facility] [id number] Unknown [id number] [id number] Social History Date Type Detail Facility Unknown if ever smoked [facility] Other Sex Assigned At Sex Assigned At Bir th [facility] Other Start: 10-19-2016 End: 10-19-2016 Tobacco smoking status NHIS Never smoked tobacco (finding) [facility] Start: 1965 Sex Assigned At Female F [facility] Start: 04-13-2024 Sex Female (finding) [facility] Discharge instructions 11-01-2023 Note Date & Type Note Facility 11-01-2023 Hospital Discharge instructions Ambulatory OrdersReferral to Gastroenterology Time Frame: 11/01/23, Location: None Selected [facility] Work Phone: Evaluation note 11-02-2022 Note Date & Type Note Facility 11-02-2022 Evaluation note Encounter Date Diagnosis Assessment Notes Oct, Dysuria (ICD-10 - R30.0) [facility] Other Evaluation note 10-13-2022 Note Date & Type Note Facility 10-13-2022 Evaluation note Encounter Date Diagnosis Assessment Notes Oct, Dysuria (ICD-10 - R30.0) [facility] Other Evaluation note Note Date & Type Note Facility Evaluation note No Information [employer] Other Evaluation note Note Date & Type Note Facility Evaluation note No assessment information availa ble [facility] Work Phone: Evaluation note Note Date & Type Note Facility Evaluation note Diagnosis Onset Date Screening mammogram for breast cancer acute [facility] Work Phone: Evaluation note Note Date & Type Note Facility Evaluation note Diagnosis Onset Date Screening for colon cancer a cute Screening mammogram for breast cancer acute [facility] exam acute [facility] Work Phone: Evaluation note Note Date & Type Note Facility Evaluation note Diagnosis Onset Date Resolution Type 2 diabetes mellitus with hyperglycemia acute April 13, 2024 10:49am [facility] Work Phone: History general Narrative - Reported Note Date & Type Note Facility History general Narrative - Reported Type Medical History Diabetes Medical History Hypertension Medical History Kidney calculi Surgical History C section Surgical History lithotripsy Hospitalization History kidney stones [facility] Other Summary Purpose Family History Relationship Condition Age at Onset Recorded Date/T megan father Diabetes mellitus Unknown Hypertension Unknown Not Specified Diabetes mellitus Unknown Heart disease Unknown Relationship Condition Age at Onset Recorded Date/T megan father Diabetes mellitus Unknown Hypertension Unknown mother Diabetes mellitus Unknown Heart disease Unknown Advance Directives Advance Directive Response Recorded Date/ Time Advance Directives No May 21 11:36am Advance Directive Response Recorded Date/ Time Advance Directives No May 21 10:36am Chief Complaint and Reason for Visit Chief Complaint pos UTI Chief Complaint pos UTI Pap Reason for Visit Screening mammogram for breast cancer Chief Complaint pos UTI Encounter for well woman exam Pap Reason for Visit Screening for colon cancer Screening mammogram for breast cancer Well woman exam Chief Complaint Admit Date follow up April 13, 2024 1 0:49am Reason for Visit Admit Date Type 2 diabetes mellitus with hyperglyce beau April 13, 2024 10:49am Additional Source Comments INFORMATION SOURCE (unrecogn ized section and content) DATE CREATED AUTHOR 05/10/2021 Stuart wilson DATE CREATED AUTHOR AUTHOR'S ORGANIZ ATION 06/24/2022 [facility] DATE CREATED AUTHOR AUTHOR'S ORGANIZ ATION 11/07/2023 [facility] REASON FOR VISIT (unrecogniz ed section and content) UrineUA-Frequency, BurningUA - Frequency, Burningrefill Care Teams (unrecognized sec tion and content) Team Status: Active Member Role Status Dates Nevaeh Gilmore MD Primary Care Provider Active Team Status: Inactive Member Role Status Dates Nevaeh Gilmore MD Primary Care Provide r, Attending Provider Active Start: August 23, 2023 End: August 23, 2023 Team Status: Inactive Member Role Status Dates Nevaeh Gilmore MD Primary Care Provide r, Attending Provider Active Start: November 01, 2023 End: November 01, 2023 Team Status: Inactive Member Role Status Dates Nevaeh Gilmore MD Attending Provider Active St art: November 01, 2023 End: November 01, 2023 Team Status: Active Member Role Status Dates NON STAFF Primary Care Provider Active Team Status: Inactive Member Role Status Dates NON STAFF Primary Care Provider Active Start: April 13, 2024 End: April 13, 2024 Nevaeh Gilmore MD Attending Provider Active St art: April 13, 2024 End: April 13, 2024 Goals (unrecognized section and content) Goals may [...] ON THE PRIMARY CLINICAL RECORDS. [facility] [employer] provides no warranty or guarantee of the accuracy or completeness of information in this document.
--- NOTE | 2024-07-22 10:23 | ECG_ITS ---
[facility] Test Date: 2024-07-22 Pat Name: INNA SANTIAGO Department: Room: - Gender: Female [employer] Architect: : [id number] Requested By: [id number] Order Number: [id number] Reading MD: JANE MERINO M.D. Measurements Intervals [place] Rate: 87 P: 75 MO: 142 QRS: 48 QRSD: 76 T: 57 QT: 358 QTc: 402 Interpretive Statements 1100 Sinus rhythm 3433 Septal myocardial infarction, probably old 9150 abnormal ECG Compared to ECG 11/22/2023 13:44:38 No significant changes Electronically Signed On 07-23-2024 12:35:11 EDT by JANE MERINO M.D.
--- NOTE | 2024-07-22 10:24 | ED_ITS ---
HPI HPI - General Adult General Chief complaint: Neuro Symptoms/Deficit Stated complaint: NUMBNESS R SIDE OF FACE Time Seen by Provider: 07/22/24 10:02 Source: patient Mode of arrival: walk-in History of Present Illness HPI narrative: 59-year-old female presents for visual disturbance. It started about an hour ago when she had just made breakfast. There was no trauma. She describes a kaleidoscope in the right eye only that lasted for about 20 minutes and then resolved. Now she states her vision is not right but she cannot describe it. She states is not blurred and it is not hazy and she does not have a blind spot. She describes some subjective numbness lateral to the right eye. No symptoms in the left eye and she has never experienced this previously. Related Data Home Medications ?Medication ?Instructions ?Recorded ?Confirmed losartan 50 mg tablet 50 mg PO DAILY 07/22/2407/13 metformin 500 mg tablet,extended 1,500 mg PO DAILY 01/0607/22/24 release 24 hr semaglutide 0.25 mg or 0.5 mg (2 0.25 mg subcut DAILY 07/22/24 07/22/24 mg/3 mL) subcutaneous pen injector (Ozempic) Previous Rx's ?Medication ?Instructions ?Recorded meclizine 12.5 mg tablet 12.5 mg PO BID PRN dizziness #10 11/22/23 tabs Allergies Allergy/AdvReac Type Severity Reaction Status Date / Time Penicillins Allergy Unconscious Verified 11/22/23 13:49 Review of Systems ROS Narrative A ten point review of systems is negative except as noted above. [facility] Medical History (Updated 07/22/24 @ 14:00 by Renzo Duckworth MD) Diabetes ?E11.9 - Type 2 diabetes mellitus without complications (ICD-10) Hypertension ?I10 - Essential (primary) hypertension (ICD-10) Social History Little interest or pleasure in doing things: not at all Feeling down, depressed, or hopeless: not at all Exam Narrative Exam Narrative: Nurses note and vital signs reviewed and patient is not hypoxic. General: The patient appears well and in no apparent distress. Patient is resting comfortably on cart. Skin: Warm, dry, no pallor noted. There is no rash noted. Head: Normocephalic, atraumatic Eye: Normal conjunctiva, no drainage, EOMI. PERRL. No periorbital swelling or erythema. Funduscopic exam of the right eye appears normal, no retinal detachment. Ears, Nose, Mouth, and Throat: oral mucosa is moist. Nares patent. Cardiovascular: Regular Rate and Rhythm Respiratory: Patient is in no distress, no accessory muscle use, lungs are clear to auscultation, no wheezing, rales or rhonchi Back: non-tender GI: Soft and nontender Musculoskeletal: The patient has no evidence of calf tenderness, no pitting edema, symmetrical pulses noted bilaterally Neurological: A&O, normal speech; upper and lower extremity strength intact and symmetric. She has no facial droop. Motor strength in her face is normal. She has subjective mild numbness lateral to the right eye and just below it. Psychiatric: Cooperative Constitutional Vital Signs, click to edit/add: Last Vital Signs Temp 98.4 F 07/22/24 10:04 Pulse 86 07/22/24 10:04 Resp 18 07/22/24 10:04 BP 177/99 H 07/22/24 10:04 Pulse Ox 100 07/22/24 10:04 Course Vital Signs Vital signs: Vital Signs Temperature 98.4 F 07/22/24 10:04 Pulse Rate 86 07/22/24 10:04 Respiratory Rate 18 07/22/24 10:04 Blood Pressure 177/99 H 07/22/24 10:04 Pulse Oximetry 100 07/22/24 10:04 Temperature 98.4 F 07/22/24 10:04 Pulse Rate 86 07/22/24 10:04 Respiratory Rate 18 07/22/24 10:04 Blood Pressure 177/99 H 07/22/24 10:04 Pulse Oximetry 100 07/22/24 10:04 Medical Decision Making [facility] Narrative Medical decision making narrative: Her workup including CT, CTA of head and neck, and blood work is negative. Her symptoms have resolved. There is no indication for admission in the hospital. The possibility of ocular migraine is entertained. She will follow-up promptly with her PCP. Treatment diagnosis and follow-up were discussed with the patient. Differential Diagnosis Differential Diagnosis: Stroke, intracranial hemorrhage, retinal detachment Lab Data Lab results reviewed: Yes I reviewed the patient's lab results Labs: Lab Results 07/22/24 Range/Units 10:15 WBC 4.9 (4.0-11.0) 10^3/uL RBC 4.72 (4.20-5.40) 10^6/uL Hgb 13.8 (12.0-16.0) g/dL Hct 40.2 (36.0-48.0) % MCV 85.2 (81.0-99.0) fL MCH 29.2 (26.7-34.0) pg MCHC 34.3 (29.9-35.2) g/dL RDW 12.3 (11.0-15.0) % Plt Count 270 (150-450) 10^3/uL MPV 8.6 L (9.5-13.5) fL Neut % (Auto) 48.8 (43.0-75.0) % Lymph % (Auto) 42.9 (20.5-60.0) % [place] % (Auto) 4.9 (1.7-12.0) % Eos % (Auto) 2.0 (0.9-7.0) % Baso % (Auto) 1.2 (0.2-2.0) % Neut # (Auto) 2.4 (1.4-6.5) 10^3/uL Lymph # (Auto) 2.1 (1.2-3.8) 10^3/uL [place] # (Auto) 0.2 L (0.3-0.8) 10^3/uL Eos # (Auto) 0.1 (0.0-0.7) 10^3/uL Baso # (Auto) 0.1 (0.0-0.1) 10^3/uL Abs Immat Gran (auto) 0.01 (0.00-0.03) 10^3/uL Imm/Tot Granulo (auto) 0.2 (0.0-0.5) % PT 10.3 (9.0-11.6) sec INR 0.97 APTT 26.5 (22.3-36.2) sec Sodium 135 L (136-145) mmol/L Potassium 4.1 (3.5-5.1) mmol/L Chloride 100 (98-107) mmol/L Carbon Dioxide 26.2 (21.0-32.0) mmol/L Anion Gap 12.9 BUN 14.0 (7.0-18.0) mg/dL Creatinine 0.78 (0.55-1.02) mg/dL Est GFR ( Amer) >60 (>=60 mL/min/1.73m^2) Est GFR (Non-Af Amer) >60 (>=60 mL/min/1.73m^2) BUN/Creatinine Ratio 17.9 Glucose 178 H (74-106) mg/dL Calcium 9.4 (8.5-10.1) mg/dL Imaging Data CT, CT brain angiogram and CT neck angiogram: Radiologist's impression: All show no acute findings ECG Data Attestation: I personally reviewed and interpreted this ECG as follows: (EKG on my interpretation shows sinus rhythm with rate of 87 and no acute change) Discharge Plan Discharge Chief Complaint: Neuro Symptoms/Deficit 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 Call on Wednesday. Return to ED if symptoms return. Referrals: Nevaeh Chappell MD [Primary Care Provider, Family Practice] - 1 week
[2024-07-22 10:32] LABS: Basophils Absolute Auto 0.1 10^3/uL (0.0-0.1); Basophils Percent Auto 1.2 % (0.2-2.0); Eosinophils Absolute Auto 0.1 10^3/uL (0.0-0.7); Hematocrit 40.2 % (36.0-48.0); Hemoglobin 13.8 g/dL (12.0-16.0); Immature Granulocytes Abs Auto 0.01 10^3/uL (0.00-0.03); Immature Granulocytes Pct Auto 0.2 % (0.0-0.5); Lymphocytes Absolute Auto 2.1 10^3/uL (1.2-3.8); Lymphocytes Percent Auto 42.9 % (20.5-60.0); Mean Corpuscular HGB Conc 34.3 g/dL (29.9-35.2); Mean Corpuscular Hemoglobin 29.2 pg (26.7-34.0); Mean Corpuscular Volume 85.2 fL (81.0-99.0); Mean Platelet Volume 8.6 fL (9.5-13.5); Monocytes Absolute Auto 0.2 10^3/uL (0.3-0.8); Monocytes Percent Auto 4.9 % (1.7-12.0); Neutrophils Absolute Auto 2.4 10^3/uL (1.4-6.5); Neutrophils Percent Auto 48.8 % (43.0-75.0); Platelet Count 270 10^3/uL (150-450); Red Blood Count 4.72 10^6/uL (4.20-5.40); Red Cell Distribution Width 12.3 % (11.0-15.0); White Blood Count 4.9 10^3/uL (4.0-11.0)
[2024-07-22 10:35] LABS: Anion Gap 12.9; BUN Creatinine Ratio 17.9; Calcium 9.4 mg/dL (8.5-10.1); Carbon Dioxide 26.2 mmol/L (21.0-32.0); Chloride 100 mmol/L (98-107); Estimated GFR (African America >60 (>=60 mL/min/1.73m^2); Estimated GFR (Non-African Ame >60 (>=60 mL/min/1.73m^2); Glucose 178 mg/dL (74-106); Potassium 4.1 mmol/L (3.5-5.1); Sodium 135 mmol/L (136-145)
[2024-07-22 10:37] LABS: INR 0.97; Partial Thromboplastin Time 26.5 sec (22.3-36.2); Prothrombin Time 10.3 sec (9.0-11.6)
== END 2024-07-22 14:08 | disposition home or self-care (01) ==
PROVIDERS: Emergency Provider Emergency Medicine; PCP Family Medicine
DX: H53.451 Other localized visual field defect, right eye (principal)
CPT/HCPCS: 36415; 70450; 70496; 70498; 80048; 85025; 85610; 85730; 93005; 99285; Q9967